=== PATIENT | male | born 1950 | race Caucasian/White ===

== ENCOUNTER → 2016-11-27 | Outpatient (CLI) | payer MEDICARE, OTHER ==
[~2016-11-27] MED LIST: IOHEXOL 350 MG/ML 100ML IJ ONE
[2016-11-27 09:10] VITALS: BP 115/73
[2016-11-27 09:40] VITALS: BP 115/74
[2016-11-27 12:11] LABS: Urine Bilirubin Negative (Negative); Urine Blood Negative /uL (Negative); Urine Color Yellow (Yellow); Urine Glucose Normal (Normal); Urine Ketone Negative (Negative); Urine Nitrite Negative (Negative); Urine Urobilinogen Normal (Negative)
[2016-11-27 12:16] LABS: Basophils # (auto) 0 uL; Basophils % (auto) 0.3 % (0.0-2.0); Eosinophils # (auto) 0.2 uL; Eosinophils % (auto) 2.5 % (0.0-7.0); Hematocrit 39.9 % (41.0-53.0); Hemoglobin 12.9 g/dL (13.5-17.5); Lymphocytes # (auto) 1.7 uL; Lymphocytes % (auto) 24.1 % (10.0-50.0); Mean Corpuscular Hemoglobin 30.7 pg (28.0-32.0); Mean Corpuscular Hgb Conc. 32.3 g/dL (32.0-36.0); Mean Corpuscular Volume 94.8 fL (80.0-100.0); Mean Platelet Volume 7.9 fL (7.4-10.4); Monocytes % (auto) 13.4 % (0.0-12.0); Neutrophils # (auto) 4.3 uL; Neutrophils % (auto) 59.7 % (37.0-80.0); Platelet Count (auto) 240 10^3/uL (140-450); Red Cell Distribution Width 14.5 % (11.6-16.0); White Blood Cell 7.2 10^3/uL (4.4-10.8)
[2016-11-27 14:30] LABS: Albumin 3.2 g/dL (3.4-5.0); BUN/Creatinine Ratio 17.8; Bilirubin, Direct 0.2 mg/dL (0-0.2); Bilirubin, Total 0.6 mg/dL (0.2-1.0); Calcium 8.3 mg/dL (8.5-10.1); Total Protein 6.8 g/dL (6.4-8.2)
== END | disposition home or self-care (01) ==
LOC: Rad HDHVI 08:47
PROVIDERS: ATTEND Internal Medicine Cardiovascular Disease
DX: I10 Essential (primary) hypertension (principal); E78.00 Pure hypercholesterolemia, unspecified; K74.1 Hepatic sclerosis; E11.9 Type 2 diabetes mellitus without complications; R97.20 Elevated prostate specific antigen [PSA]; R53.81 Other malaise; E03.9 Hypothyroidism, unspecified; D64.9 Anemia, unspecified; E55.9 Vitamin D deficiency, unspecified; N39.0 Urinary tract infection, site not specified
CPT/HCPCS: 36415; 74175; 80048; 80061; 80076; 81003; 82306; 83036; 84153; 84403; 84439; 84443; 85025; G0463

== ENCOUNTER → 2017-01-02 | Outpatient (CLI) | payer MEDICARE, OTHER ==
[~2017-01-02] VITALS: Ht 175.3 cm; Wt 106.6 kg
[~2017-01-02] MED LIST changes: +ADENOSINE 90 MG in GIVE UN-DILUTED 0 ML IV ONE; +ADENOSINE 90 MG/30 ML INJ IV ONE; -IOHEXOL 350 MG/ML 100ML IJ ONE
== END | disposition home or self-care (01) ==
LOC: Rad HDHVI 08:03
PROVIDERS: ATTEND Internal Medicine Cardiovascular Disease
DX: I10 Essential (primary) hypertension (principal); E78.00 Pure hypercholesterolemia, unspecified; F17.210 Nicotine dependence, cigarettes, uncomplicated; Z95.1 Presence of aortocoronary bypass graft
CPT/HCPCS: 78452; 93005; 96374; 96375; A9500; J0153

== ENCOUNTER → 2017-10-15 | Outpatient (CLI) | payer MEDICARE | END | disposition home or self-care (01) | LOC: Rad HDHVI 07:51 | PROVIDERS: ATTEND Internal Medicine Cardiovascular Disease | DX: I10 Essential (primary) hypertension (principal); I50.33 Acute on chronic diastolic (congestive) heart failure; Z86.73 Personal history of transient ischemic attack (TIA), and cerebral infarction without residual deficits | CPT/HCPCS: 93306; 93880 ==

== ENCOUNTER → 2017-12-29 | Outpatient (CLI) | payer MEDICARE ==
[~2017-12-29] VITALS: Ht 175.3 cm; Wt 106.6 kg
== END | disposition home or self-care (01) ==
LOC: Rad HDHVI 10:14
PROVIDERS: ATTEND Internal Medicine Cardiovascular Disease
DX: I42.0 Dilated cardiomyopathy (principal); I71.4 Abdominal aortic aneurysm, without rupture; G45.9 Transient cerebral ischemic attack, unspecified; I11.0 Hypertensive heart disease with heart failure; I50.33 Acute on chronic diastolic (congestive) heart failure; R00.2 Palpitations
CPT/HCPCS: 78452; 93005; 96374; 96375; A9500; J0153

== ENCOUNTER → 2017-12-31 | Outpatient (CLI) | payer MEDICARE ==
[~2017-12-31] MED LIST changes: -ADENOSINE 90 MG in GIVE UN-DILUTED 0 ML IV ONE; -ADENOSINE 90 MG/30 ML INJ IV ONE; +IOHEXOL 350 MG/ML 100ML IJ ONE
[2017-12-31 09:30] VITALS: BP 107/71
[2017-12-31 10:15] VITALS: BP 107/64
== END | disposition home or self-care (01) ==
LOC: Rad HDHVI 09:22
PROVIDERS: ATTEND Internal Medicine Cardiovascular Disease
DX: I42.0 Dilated cardiomyopathy (principal); I71.4 Abdominal aortic aneurysm, without rupture; G45.9 Transient cerebral ischemic attack, unspecified; R00.2 Palpitations
CPT/HCPCS: 74175; 82565; G0463; Q9967

== ENCOUNTER → 2018-10-26 | Outpatient (CLI) | payer MEDICARE ==
[2018-10-26 12:30] LABS: Albumin 3.9 g/dL (3.4-5.0); Potassium 5.3 mmol/L (3.5-5.1)
[2018-10-26 12:31] LABS: Urine Blood Negative /uL (Negative); Urine Specific Gravity 1.018 (1.001-1.035)
[2018-10-26 12:35] LABS: BUN/Creatinine Ratio 16.1; Bilirubin, Total 0.6 mg/dL (0.2-1.0); Total Protein 7.7 g/dL (6.4-8.2)
[2018-10-26 12:36] LABS: Basophils # (auto) 0 uL; Basophils % (auto) 0.5 % (0.0-2.0); Eosinophils # (auto) 0.2 uL; Eosinophils % (auto) 2.9 % (0.0-7.0); Hemoglobin 15.3 g/dL (13.5-17.5); Lymphocytes # (auto) 2.1 uL; Lymphocytes % (auto) 27.1 % (10.0-50.0); Mean Corpuscular Hgb Conc. 31.3 g/dL (32.0-36.0); Mean Corpuscular Volume 86.2 fL (80.0-100.0); Monocytes # (auto) 1.1 uL; Monocytes % (auto) 14.8 % (0.0-12.0); Neutrophils # (auto) 4.2 uL; Neutrophils % (auto) 54.7 % (37.0-80.0); Nucleated Red Blood Cells % 0.8 %; Platelet Count (auto) 282 10^3/uL (140-450); Red Blood Cells 5.68 10^6/uL (4.5-5.90); Red Cell Distribution Width 19.1 % (11.8-14.3); White Blood Cell 7.7 10^3/uL (4.4-10.8)
[2018-10-26 14:06] LABS: Free T4 (Free Thyroxine) 0.89 ng/dL (0.89-1.76)
[2018-10-26 14:08] LABS: Prostate Specific Antigen 0.39 ng/mL (0.0-4.0)
== END | disposition home or self-care (01) ==
LOC: LAB 08:17
PROVIDERS: ATTEND Internal Medicine Cardiovascular Disease
DX: E11.9 Type 2 diabetes mellitus without complications (principal); E03.9 Hypothyroidism, unspecified; E55.9 Vitamin D deficiency, unspecified; E29.1 Testicular hypofunction; D51.9 Vitamin B12 deficiency anemia, unspecified; C61 Malignant neoplasm of prostate; N39.0 Urinary tract infection, site not specified
CPT/HCPCS: 36415; 80053; 80061; 81003; 82306; 82607; 83036; 84153; 84403; 84439; 84443; 85025

== ENCOUNTER → 2018-11-20 | Outpatient (CLI) | payer MEDICARE | END | disposition home or self-care (01) | LOC: Rad HDHVI 09:48 | PROVIDERS: ATTEND Internal Medicine Cardiovascular Disease | DX: R07.89 Other chest pain (principal) | CPT/HCPCS: 93306 ==

== ENCOUNTER → 2018-12-15 | Outpatient (CLI) | payer MEDICARE ==
[~2018-12-15] VITALS: Ht 175.3 cm; Wt 113.4 kg
[~2018-12-15] MED LIST changes: +ADENOSINE 90 MG/30 ML INJ IV ONE; +ADENOSINE 95 MG in GIVE UN-DILUTED 0 ML IV ONE; -IOHEXOL 350 MG/ML 100ML IJ ONE
== END | disposition home or self-care (01) ==
LOC: Rad HDHVI 07:50
PROVIDERS: ATTEND Internal Medicine Cardiovascular Disease
DX: M19.90 Unspecified osteoarthritis, unspecified site (principal); I42.0 Dilated cardiomyopathy; G62.9 Polyneuropathy, unspecified; R06.02 Shortness of breath; I50.43 Acute on chronic combined systolic (congestive) and diastolic (congestive) heart failure
CPT/HCPCS: 78452; 93005; 96374; 96375; A9500; J0153

== ENCOUNTER → 2018-12-25 | Outpatient (CLI) | payer MEDICARE ==
[~2018-12-25] MED LIST changes: -ADENOSINE 90 MG/30 ML INJ IV ONE; -ADENOSINE 95 MG in GIVE UN-DILUTED 0 ML IV ONE; +IOHEXOL 350 MG/ML 100ML IJ ONE
[2018-12-25 09:35] VITALS: BP 119/71
--- NOTE | 2018-12-25 09:35 | NUR ---
IV insertion IV access obtained, via clean sterile technique by inserting 20 gauge catheter at LFA after 1 attempt(s). IV secured properly. No trauma to site. Patient tolerated procedure well.
--- NOTE | 2018-12-25 09:40 | NUR ---
LABS DRAWN, CREAT STAT SENT TO LAB
--- NOTE | 2018-12-25 11:10 | NUR ---
IV removal IV DC'd with sterile technique, catheter fully intact. Pressure dressing applied to site. Patient tolerated procedure well.
[2018-12-25 11:13] VITALS: BP 123/80
--- NOTE | 2018-12-25 11:13 | NUR ---
[facility] Discharge Instructions See e-MAR for any mediations given with this visit. Patient education given on disease process. Patient verbalized understanding. Previous labs reviewed. Patient discharged in stable condition with after care instructions and follow up appointment. NOTE PATIENT EDUCATED TO DRINK PLENTY OF FLUIDS OVER THE NEXT 24 HRS, PT VERBALIZED UNDERSTANDING.
== END | disposition home or self-care (01) ==
LOC: Rad HDHVI 09:21
PROVIDERS: ATTEND Internal Medicine Cardiovascular Disease
DX: I71.9 Aortic aneurysm of unspecified site, without rupture (principal); I71.00 Dissection of unspecified site of aorta; I70.0 Atherosclerosis of aorta; R94.4 Abnormal results of kidney function studies; I11.0 Hypertensive heart disease with heart failure; I50.9 Heart failure, unspecified; I42.9 Cardiomyopathy, unspecified; J43.8 Other emphysema
CPT/HCPCS: 36415; 71260; 74177; 82565; G0463; Q9967

== ENCOUNTER → 2019-09-29 | Outpatient (CLI) | payer MEDICARE | END | disposition home or self-care (01) | LOC: Rad HDHVI 07:56 | PROVIDERS: ATTEND Internal Medicine Cardiovascular Disease | DX: I34.0 Nonrheumatic mitral (valve) insufficiency (principal) | CPT/HCPCS: 93306 ==

== ENCOUNTER → 2019-10-18 | Outpatient (CLI) | payer MEDICARE ==
[~2019-10-18] VITALS: Ht 175.3 cm; Wt 108.9 kg
[~2019-10-18] MED LIST changes: +ADENOSINE 90 MG/30 ML INJ IV ONE; +ADENOSINE 91 MG in GIVE UN-DILUTED 0 ML IV ONE; -IOHEXOL 350 MG/ML 100ML IJ ONE
[2019-10-18 12:03] LABS: Basophils # (auto) 0 uL; Basophils % (auto) 0.7 % (0.0-2.0); Eosinophils # (auto) 0.2 uL; Eosinophils % (auto) 2.9 % (0.0-7.0); Hematocrit 51.6 % (41.0-53.0); Hemoglobin 16.5 g/dL (13.5-17.5); Lymphocytes # (auto) 1.5 uL; Lymphocytes % (auto) 22.1 % (10.0-50.0); Mean Corpuscular Hgb Conc. 32.1 g/dL (32.0-36.0); Mean Corpuscular Volume 87.1 fL (80.0-100.0); Monocytes # (auto) 1.2 uL; Monocytes % (auto) 17.4 % (0.0-12.0); Neutrophils # (auto) 3.9 uL; Neutrophils % (auto) 56.9 % (37.0-80.0); Nucleated Red Blood Cells % 0.1 %; Platelet Count (auto) 251 10^3/uL (140-450); Red Blood Cells 5.92 10^6/uL (4.5-5.90); Red Cell Distribution Width 17.3 % (11.8-14.3); White Blood Cell 6.8 10^3/uL (4.4-10.8)
[2019-10-18 12:08] LABS: Potassium 4.2 mmol/L (3.5-5.1)
[2019-10-18 12:11] LABS: Urine Blood Negative /uL (Negative); Urine Specific Gravity 1.009 (1.001-1.035)
[2019-10-18 12:16] LABS: Albumin 3.8 g/dL (3.4-5.0); BUN/Creatinine Ratio 12.2; Bilirubin, Total 0.6 mg/dL (0.2-1.0); Calcium 8.8 mg/dL (8.5-10.1); Total Protein 7.9 g/dL (6.4-8.2)
[2019-10-18 12:26] LABS: Free T4 (Free Thyroxine) 0.72 ng/dL (0.89-1.76)
[2019-10-18 12:27] LABS: Prostate Specific Antigen 0.38 ng/mL (0.0-4.0)
== END | disposition home or self-care (01) ==
LOC: Rad HDHVI 08:02
PROVIDERS: ATTEND Internal Medicine Cardiovascular Disease
DX: E03.9 Hypothyroidism, unspecified (principal); R07.89 Other chest pain; R06.02 Shortness of breath; K90.9 Intestinal malabsorption, unspecified; C61 Malignant neoplasm of prostate; N39.0 Urinary tract infection, site not specified; D51.9 Vitamin B12 deficiency anemia, unspecified; I10 Essential (primary) hypertension; E78.00 Pure hypercholesterolemia, unspecified; Z95.1 Presence of aortocoronary bypass graft; Z82.49 Family history of ischemic heart disease and other diseases of the circulatory system; Z79.899 Other long term (current) drug therapy; Z95.5 Presence of coronary angioplasty implant and graft
CPT/HCPCS: 36415; 78452; 80053; 80061; 81003; 82306; 82607; 83036; 84153; 84403; 84439; 84443; 85025; 93005; 96374; 96375; A9500; J0153

== ENCOUNTER → 2020-01-05 | Outpatient (CLI) | payer MEDICARE | END | disposition home or self-care (01) | LOC: LAB 10:44 | PROVIDERS: ATTEND Internal Medicine Cardiovascular Disease | DX: R94.4 Abnormal results of kidney function studies (principal) | CPT/HCPCS: 36415; 82565 ==

== ENCOUNTER → 2020-01-07 | Outpatient (CLI) | payer MEDICARE ==
[~2020-01-07] MED LIST changes: -ADENOSINE 90 MG/30 ML INJ IV ONE; -ADENOSINE 91 MG in GIVE UN-DILUTED 0 ML IV ONE; +IOHEXOL 350 MG/ML 100ML IJ ONE
[2020-01-07 08:30] VITALS: BP 117/79
[2020-01-07 09:25] VITALS: BP 115/67
== END | disposition home or self-care (01) ==
LOC: Rad HDHVI 08:23
PROVIDERS: ATTEND Internal Medicine Cardiovascular Disease
DX: I11.0 Hypertensive heart disease with heart failure (principal); I25.10 Atherosclerotic heart disease of native coronary artery without angina pectoris; I10 Essential (primary) hypertension; I71.4 Abdominal aortic aneurysm, without rupture
CPT/HCPCS: G0463; Q9967

== ENCOUNTER → 2020-09-01 | Outpatient (CLI) | payer MEDICARE ==
[2020-09-01 12:13] LABS: Basophils # (auto) 0 10 ^3/uL (0-0.2); Basophils % (auto) 0.7 % (0.0-2.0); Eosinophils # (auto) 0.2 10 ^3/uL (0-0.8); Eosinophils % (auto) 3.1 % (0.0-7.0); Hematocrit 49.7 % (41.0-53.0); Hemoglobin 16.2 g/dL (13.5-17.5); Lymphocytes # (auto) 1.9 10 ^3/uL (0.4-5.4); Lymphocytes % (auto) 25.7 % (10.0-50.0); Mean Corpuscular Hemoglobin 30.5 pg (28.0-32.0); Mean Corpuscular Hgb Conc. 32.6 g/dL (32.0-36.0); Mean Corpuscular Volume 93.7 fL (80.0-100.0); Monocytes # (auto) 1.2 10 ^3/uL (0-1.3); Monocytes % (auto) 16.6 % (0.0-12.0); Neutrophils # (auto) 3.9 10 ^3/uL (1.6-8.6); Neutrophils % (auto) 53.9 % (37.0-80.0); Nucleated Red Blood Cells % 1.7 %; Platelet Count (auto) 235 10^3/uL (140-450); Red Blood Cells 5.31 10^6/uL (4.5-5.90); Red Cell Distribution Width 15.8 % (11.8-14.3); White Blood Cell 7.3 10^3/uL (4.4-10.8)
[2020-09-01 12:31] LABS: Urine Blood Negative /uL (Negative); Urine Specific Gravity 1.007 (1.001-1.035)
[2020-09-01 12:37] LABS: Albumin 3.6 g/dL (3.4-5.0)
[2020-09-01 12:40] LABS: Total Protein 7.8 g/dL (6.4-8.2)
[2020-09-01 14:13] LABS: Potassium 3.9 mmol/L (3.5-5.1)
[2020-09-01 14:14] LABS: Bilirubin, Total 0.5 mg/dL (0.2-1.0); Calcium 8.4 mg/dL (8.5-10.1); Free T4 (Free Thyroxine) 0.76 ng/dL (0.89-1.76); Prostate Specific Antigen 0.35 ng/mL (0.0-4.0)
[2020-09-01 14:15] LABS: BUN/Creatinine Ratio 11.2
== END | disposition home or self-care (01) ==
LOC: LAB 08:44
PROVIDERS: ATTEND Internal Medicine Cardiovascular Disease
DX: C61 Malignant neoplasm of prostate (principal); D51.3 Other dietary vitamin B12 deficiency anemia; I10 Essential (primary) hypertension; E11.9 Type 2 diabetes mellitus without complications; E55.9 Vitamin D deficiency, unspecified; R00.2 Palpitations; R53.1 Weakness; R30.0 Dysuria
CPT/HCPCS: 36415; 80053; 80061; 81003; 82306; 82607; 83036; 84153; 84403; 84439; 84443; 85025

== ENCOUNTER → 2020-09-27 | Outpatient (CLI) | payer MEDICARE | END | disposition home or self-care (01) | LOC: Rad HDHVI 09:50 | PROVIDERS: ATTEND Internal Medicine Cardiovascular Disease | DX: I50.43 Acute on chronic combined systolic (congestive) and diastolic (congestive) heart failure (principal); I25.5 Ischemic cardiomyopathy | CPT/HCPCS: 93306 ==

== ENCOUNTER → 2020-10-05 | Outpatient (CLI) | payer MEDICARE ==
[~2020-10-05] VITALS: Ht 175.3 cm; Wt 117.0 kg
[~2020-10-05] MED LIST changes: +ADENOSINE 90 MG/30 ML INJ IV ONE; +ADENOSINE 98 MG in GIVE UN-DILUTED 0 ML IV ONE; -IOHEXOL 350 MG/ML 100ML IJ ONE
== END | disposition home or self-care (01) ==
LOC: Rad HDHVI 08:42
PROVIDERS: ATTEND Internal Medicine Cardiovascular Disease
DX: R06.02 Shortness of breath (principal); I10 Essential (primary) hypertension; E78.5 Hyperlipidemia, unspecified; Z95.1 Presence of aortocoronary bypass graft; Z82.49 Family history of ischemic heart disease and other diseases of the circulatory system
CPT/HCPCS: 78452; 93005; 96374; 96375; A9500; J0153

== ENCOUNTER → 2020-10-20 | Outpatient (CLI) | payer MEDICARE | END | disposition home or self-care (01) | LOC: LAB 10:33 | PROVIDERS: ATTEND Internal Medicine Cardiovascular Disease | DX: R94.4 Abnormal results of kidney function studies (principal) | CPT/HCPCS: 36415; 82565 ==

== ENCOUNTER → 2020-10-23 | Outpatient (CLI) | payer MEDICARE ==
[~2020-10-23] MED LIST changes: -ADENOSINE 90 MG/30 ML INJ IV ONE; -ADENOSINE 98 MG in GIVE UN-DILUTED 0 ML IV ONE; +IOHEXOL 350 MG/ML 100ML IJ ONE
[2020-10-23 09:39] VITALS: BP 116/73
[2020-10-23 10:17] VITALS: BP 122/78
== END | disposition home or self-care (01) ==
LOC: Rad HDHVI 09:29
PROVIDERS: ATTEND Internal Medicine Cardiovascular Disease
DX: I71.4 Abdominal aortic aneurysm, without rupture (principal); I70.0 Atherosclerosis of aorta; I70.8 Atherosclerosis of other arteries; J43.9 Emphysema, unspecified; I25.10 Atherosclerotic heart disease of native coronary artery without angina pectoris; K44.9 Diaphragmatic hernia without obstruction or gangrene; K80.20 Calculus of gallbladder without cholecystitis without obstruction; M47.819 Spondylosis without myelopathy or radiculopathy, site unspecified; Z95.1 Presence of aortocoronary bypass graft
CPT/HCPCS: 71260; 74177; G0463; Q9967

== ENCOUNTER → 2021-08-29 | Outpatient (CLI) | payer MEDICARE | END | disposition home or self-care (01) | LOC: Rad HDHVI 08:43 | PROVIDERS: ATTEND Internal Medicine Cardiovascular Disease | DX: I35.8 Other nonrheumatic aortic valve disorders (principal); R00.2 Palpitations; R06.02 Shortness of breath | CPT/HCPCS: 93306 ==

== ENCOUNTER → 2021-09-03 | Outpatient (CLI) | payer MEDICARE ==
[~2021-09-03] VITALS: Ht 175.3 cm; Wt 113.4 kg
[~2021-09-03] MED LIST changes: +ADENOSINE 90 MG/30 ML INJ IV ONE; +ADENOSINE 95 MG in GIVE UN-DILUTED 0 ML IV ONE; -IOHEXOL 350 MG/ML 100ML IJ ONE
== END | disposition home or self-care (01) ==
LOC: Rad HDHVI 12:47
PROVIDERS: ATTEND Internal Medicine Cardiovascular Disease
DX: I50.23 Acute on chronic systolic (congestive) heart failure (principal); R00.2 Palpitations; R06.02 Shortness of breath; E78.00 Pure hypercholesterolemia, unspecified
CPT/HCPCS: 78452; 93005; 96374; 96375; A9500; J0153

== ENCOUNTER → 2021-09-19 | Outpatient (CLI) | payer MEDICARE ==
[2021-09-19 10:01] LABS: Basophils # (auto) 0 10 ^3/uL (0-0.2); Eosinophils # (auto) 0.2 10 ^3/uL (0-0.8); Hemoglobin 17.3 g/dL (13.5-17.5); Mean Corpuscular Volume 90.2 fL (80.0-100.0); Nucleated Red Blood Cells % 0.1 %
[2021-09-19 10:05] LABS: Basophils % (auto) 0.6 % (0.0-2.0); Hematocrit 53.7 % (41.0-53.0); Lymphocytes # (auto) 1.9 10 ^3/uL (0.4-5.4); Lymphocytes % (auto) 30.1 % (10.0-50.0); Mean Corpuscular Hemoglobin 29.1 pg (28.0-32.0); Mean Corpuscular Hgb Conc. 32.3 g/dL (32.0-36.0); Monocytes % (auto) 15.6 % (0.0-12.0); Neutrophils # (auto) 3.1 10 ^3/uL (1.6-8.6); Neutrophils % (auto) 50.7 % (37.0-80.0); Red Blood Cells 5.95 10^6/uL (4.5-5.90); Red Cell Distribution Width 20.4 % (11.8-14.3); White Blood Cell 6.2 10^3/uL (4.4-10.8)
[2021-09-19 10:09] LABS: Albumin 3.7 g/dL (3.4-5.0); Potassium 4.3 mmol/L (3.5-5.1)
[2021-09-19 10:13] LABS: Urine Blood Negative /uL (Negative); Urine Specific Gravity 1.009 (1.001-1.035)
[2021-09-19 10:24] LABS: Free T4 (Free Thyroxine) 1.05 ng/dL (0.89-1.76); Prostate Specific Antigen 0.31 ng/mL (0.0-4.0)
[2021-09-19 10:27] LABS: Bilirubin, Total 0.8 mg/dL (0.2-1.0); Total Protein 7.8 g/dL (6.4-8.2)
== END | disposition home or self-care (01) ==
LOC: LAB 08:10
PROVIDERS: ATTEND Internal Medicine Cardiovascular Disease
DX: C61 Malignant neoplasm of prostate (principal); E11.9 Type 2 diabetes mellitus without complications; D51.3 Other dietary vitamin B12 deficiency anemia; D64.9 Anemia, unspecified; E55.9 Vitamin D deficiency, unspecified; I10 Essential (primary) hypertension; R00.2 Palpitations; R53.1 Weakness; R30.0 Dysuria
CPT/HCPCS: 36415; 80053; 80061; 81003; 82306; 82607; 83036; 84153; 84403; 84439; 84443; 85025

== ENCOUNTER → 2021-09-25 | Outpatient (CLI) | payer MEDICARE ==
[~2021-09-25] MED LIST changes: -ADENOSINE 90 MG/30 ML INJ IV ONE; -ADENOSINE 95 MG in GIVE UN-DILUTED 0 ML IV ONE; +IOHEXOL 350 MG/ML 100ML IJ ONE
[2021-09-25 09:49] VITALS: BP 121/80
[2021-09-25 10:15] VITALS: BP 118/76
== END | disposition home or self-care (01) ==
LOC: Rad HDHVI 09:40
PROVIDERS: ATTEND Internal Medicine Cardiovascular Disease
DX: K80.20 Calculus of gallbladder without cholecystitis without obstruction (principal); K44.9 Diaphragmatic hernia without obstruction or gangrene; I71.4 Abdominal aortic aneurysm, without rupture; R10.9 Unspecified abdominal pain
CPT/HCPCS: 74175; G0463; Q9967

== ENCOUNTER → 2022-07-22 | Outpatient (CLI) | payer MEDICARE ==
[2022-07-22 12:17] LABS: Basophils # (auto) 0 10 ^3/uL (0-0.2); Eosinophils # (auto) 0.2 10 ^3/uL (0-0.8); Lymphocytes # (auto) 1.8 10 ^3/uL (0.4-5.4); Neutrophils # (auto) 3.4 10 ^3/uL (1.6-8.6)
[2022-07-22 12:19] LABS: Basophils % (auto) 0.6 % (0.0-2.0); Eosinophils % (auto) 3.2 % (0.0-7.0); Hemoglobin 18.2 g/dL (13.5-17.5); Lymphocytes % (auto) 27.9 % (10.0-50.0); Mean Corpuscular Hemoglobin 29.9 pg (28.0-32.0); Mean Corpuscular Hgb Conc. 32.2 g/dL (32.0-36.0); Mean Corpuscular Volume 92.9 fL (80.0-100.0); Monocytes # (auto) 1.1 10 ^3/uL (0-1.3); Monocytes % (auto) 16.6 % (0.0-12.0); Neutrophils % (auto) 51.7 % (37.0-80.0); Nucleated Red Blood Cells % 0.2 %; Red Blood Cells 6.09 10^6/uL (4.5-5.90); White Blood Cell 6.5 10^3/uL (4.4-10.8)
[2022-07-22 12:30] LABS: Free T4 (Free Thyroxine) 1.06 ng/dL (0.89-1.76); Prostate Specific Antigen 0.47 ng/mL (0.0-4.0)
[2022-07-22 12:58] LABS: Urine Blood Negative /uL (Negative); Urine Specific Gravity 1.009 (1.001-1.035)
[2022-07-22 14:21] LABS: Hematocrit 56.6 % (41.0-53.0)
[2022-07-22 16:36] LABS: Alanine Aminotransferase 39 U/L (16-61); Albumin 3.7 g/dL (3.4-5.0); Alkaline Phosphatase 88 U/L (45-117); Anion Gap 14 (5-15); Aspartate Aminotransferase 23 U/L (15-37); BUN/Creatinine Ratio 14.2; Bilirubin, Total 0.8 mg/dL (0.2-1.0); Blood Urea Nitrogen 15 mg/dL (7-18); Calcium 8.9 mg/dL (8.5-10.1); Carbon Dioxide 22 mmol/L (21-32); Chloride 106 mmol/L (98-107); Cholesterol 149 mg/dL (< 200); GFR African American 89 mL/min; GFR Non-African American 73 mL/min; Glucose 127 mg/dL (74-106); HDL Cholesterol 35 mg/dL (40-59); LDL Cholesterol 111 mg/dL (< 100); Potassium 4.6 mmol/L (3.5-5.1); Sodium 142 mmol/L (136-145); Total Protein 7.6 g/dL (6.4-8.2); Triglycerides 177 mg/dL (< 150)
== END | disposition home or self-care (01) ==
LOC: LAB 08:03
PROVIDERS: ATTEND Internal Medicine Cardiovascular Disease
DX: I50.43 Acute on chronic combined systolic (congestive) and diastolic (congestive) heart failure (principal); E55.9 Vitamin D deficiency, unspecified
CPT/HCPCS: 36415; 80053; 80061; 81003; 82306; 82607; 83036; 84153; 84403; 84439; 84443; 85025

== ENCOUNTER → 2022-09-16 | Outpatient (CLI) | payer MEDICARE ==
[2022-09-16 16:40] LABS: Hemoglobin 18.6 g/dL (13.5-17.5); White Blood Cell 8.7 10^3/uL (4.4-10.8)
[2022-09-16 16:41] LABS: Mean Corpuscular Hemoglobin 29.8 pg (28.0-32.0); Mean Corpuscular Hgb Conc. 32.3 g/dL (32.0-36.0); Mean Corpuscular Volume 92.3 fL (80.0-100.0); Red Blood Cells 6.23 10^6/uL (4.5-5.90); Red Cell Distribution Width 17.2 % (11.8-14.3)
[2022-09-16 16:44] LABS: BUN/Creatinine Ratio 23.1; Calcium 9.1 mg/dL (8.5-10.1); Potassium 4.7 mmol/L (3.5-5.1)
[2022-09-16 16:46] LABS: Hematocrit 57.5 % (41.0-53.0)
[2022-09-16 16:47] LABS: Band Neutrophils % (manual) 0; Basophils % (manual) 0 (0.0-2.0); Blast Cells 0; Metamyelocytes % 0; Myelocytes % 0; Promyelocytes % 0; Reactive Lymphocytes 0
[2022-09-16 17:20] LABS: Eosinophils % (manual) 3 (0-7); Lymphocytes % (manual) 28 (10.0-50.0); Monocytes % (manual) 17 (0-12)
== END | disposition home or self-care (01) ==
LOC: LAB 13:06
PROVIDERS: ATTEND Internal Medicine Cardiovascular Disease
DX: I10 Essential (primary) hypertension (principal)
CPT/HCPCS: 36415; 80048; 85007; 85027

== ENCOUNTER → 2023-01-30 | Outpatient (CLI) | payer MEDICARE | END | disposition home or self-care (01) | LOC: Rad HDHVI 10:55 | PROVIDERS: ATTEND Internal Medicine Cardiovascular Disease | DX: I35.8 Other nonrheumatic aortic valve disorders (principal); R06.02 Shortness of breath; I10 Essential (primary) hypertension | CPT/HCPCS: 93306 ==

== ENCOUNTER → 2023-02-12 | Outpatient (CLI) | payer MEDICARE ==
[~2023-02-12] VITALS: Ht 175.3 cm; Wt 106.6 kg
[~2023-02-12] MED LIST changes: +ADENOSINE 90 MG in GIVE UN-DILUTED 0 ML IV ONE; +ADENOSINE 90 MG/30 ML INJ IV ONE; -IOHEXOL 350 MG/ML 100ML IJ ONE
== END | disposition home or self-care (01) ==
LOC: Rad HDHVI 14:10
PROVIDERS: ATTEND Internal Medicine Cardiovascular Disease
DX: I10 Essential (primary) hypertension (principal); I25.10 Atherosclerotic heart disease of native coronary artery without angina pectoris; R06.02 Shortness of breath; E78.00 Pure hypercholesterolemia, unspecified; E11.21 Type 2 diabetes mellitus with diabetic nephropathy; E11.40 Type 2 diabetes mellitus with diabetic neuropathy, unspecified; E11.65 Type 2 diabetes mellitus with hyperglycemia; J44.9 Chronic obstructive pulmonary disease, unspecified; Z82.49 Family history of ischemic heart disease and other diseases of the circulatory system; Z95.1 Presence of aortocoronary bypass graft
CPT/HCPCS: 78452; 93005; 96374; 96375; A9500; J0153

== ENCOUNTER → 2023-03-19 | Outpatient (CLI) | payer MEDICARE ==
[~2023-03-19] MED LIST changes: -ADENOSINE 90 MG in GIVE UN-DILUTED 0 ML IV ONE; -ADENOSINE 90 MG/30 ML INJ IV ONE; +ALBUAER3 IN; +ANGIOMAX 250 MG VIAL IV ONE; +ASPI-543 PO; +CHOL20006 PO; +CYAN1TAB11 PO; +EPIN0.1I11 IJ; +ESOM20CA PO; +FLUT100I IN; +FLUT250M2 INH; +FURO40TA4 PO; +GABA-1250 PO; +IBUP-1456 PO; +IODIXANOL 320MG/ML 100ML BTL IV ONE; +LEVO50TA7 PO; +LIDOCAINE 2%HCL (LOCAL ANESTH.) INJ 20ML MDV ONE; +METF-370 PO; +MIDAZOLAM HCL 2MG/2ML 2ml VIAL (1mg/ml) ONE; +MULTTAB99 PO; +OMEG-20 PO; +POTA-180 PO; +POTA-220 PO; +SACU1TAB7 PO; +SIMV20TA20 PO; +SODIUM CHL 0.9% 0 ML ONE; +SPIR25TA8 PO; +TEST1INJ15 IM; +TESTOSTERONE CYPIONATE 200 MG/ML 1ML VIAL IM ONE; +fentaNYL CITRATE 100 MCG/2 ML VL ONE
[2023-03-19 13:05] VITALS: BP 140/76; PULSE 67; RESP 20; O2SAT 94
[2023-03-19 13:34] VITALS: BP 132/75; PULSE 72; RESP 20; O2SAT 94
== END | disposition home or self-care (01) ==
LOC: CHF HDHVI 12:45
PROVIDERS: ATTEND Internal Medicine Cardiovascular Disease
DX: I71.40 Abdominal aortic aneurysm, without rupture, unspecified (principal); I25.5 Ischemic cardiomyopathy; E29.1 Testicular hypofunction; E11.40 Type 2 diabetes mellitus with diabetic neuropathy, unspecified; I25.10 Atherosclerotic heart disease of native coronary artery without angina pectoris; J44.9 Chronic obstructive pulmonary disease, unspecified; I10 Essential (primary) hypertension; E11.21 Type 2 diabetes mellitus with diabetic nephropathy; Z95.1 Presence of aortocoronary bypass graft; Z85.46 Personal history of malignant neoplasm of prostate
CPT/HCPCS: 93005; 96372; G0463; J1071

== ENCOUNTER 2023-03-20 06:41 | Day surgery (SDC) | payer MEDICARE ==
[2023-03-19 15:01] LABS: Basophils # (auto) 0 10 ^3/uL (0-0.2); Basophils % (auto) 0.5 % (0.0-2.0); Eosinophils # (auto) 0.2 10 ^3/uL (0-0.8); Eosinophils % (auto) 2.5 % (0.0-7.0); Hematocrit 52.5 % (41.0-53.0); Hemoglobin 17.6 g/dL (13.5-17.5); INR 1.08 (0.9-1.15); Lymphocytes # (auto) 2.2 10 ^3/uL (0.4-5.4); Lymphocytes % (auto) 26.8 % (10.0-50.0); Mean Corpuscular Hemoglobin 32.5 pg (28.0-32.0); Mean Corpuscular Hgb Conc. 33.5 g/dL (32.0-36.0); Mean Corpuscular Volume 97.1 fL (80.0-100.0); Monocytes # (auto) 1.3 10 ^3/uL (0-1.3); Monocytes % (auto) 15.6 % (0.0-12.0); Neutrophils # (auto) 4.5 10 ^3/uL (1.6-8.6); Neutrophils % (auto) 54.6 % (37.0-80.0); Nucleated Red Blood Cells % 0.1 %; Partial Thromboplastin Time 31.6 SEC (24.5-34.5); Red Blood Cells 5.41 10^6/uL (4.5-5.90); Red Cell Distribution Width 14.6 % (11.8-14.3); White Blood Cell 8.3 10^3/uL (4.4-10.8)
[2023-03-19 15:16] LABS: BUN/Creatinine Ratio 16.7 (10.0-20.0); Calcium 8.7 mg/dL (8.5-10.1)
[2023-03-20] VITALS (7 sets, daily range): BP systolic 103–146; BP diastolic 71–90; PULSE 75–82; RESP 12–16; O2SAT 90–96
[~2023-03-20] VITALS: Ht 175.3 cm; Wt 110.2 kg
[~2023-03-20 06:41] MED LIST changes: -ANGIOMAX 250 MG VIAL IV ONE; -IODIXANOL 320MG/ML 100ML BTL IV ONE; -LIDOCAINE 2%HCL (LOCAL ANESTH.) INJ 20ML MDV ONE; -MIDAZOLAM HCL 2MG/2ML 2ml VIAL (1mg/ml) ONE; -POTA-220 PO; -SODIUM CHL 0.9% 0 ML ONE; -TESTOSTERONE CYPIONATE 200 MG/ML 1ML VIAL IM ONE; -fentaNYL CITRATE 100 MCG/2 ML VL ONE
== END 2023-03-20 12:32 | disposition home or self-care (01) ==
LOC: CATH 06:41
PROVIDERS: ATTEND Internal Medicine Cardiovascular Disease
DX: I25.10 Atherosclerotic heart disease of native coronary artery without angina pectoris (principal); I51.9 Heart disease, unspecified; I71.40 Abdominal aortic aneurysm, without rupture, unspecified; I10 Essential (primary) hypertension; J45.909 Unspecified asthma, uncomplicated; Z95.1 Presence of aortocoronary bypass graft; Z79.82 Long term (current) use of aspirin; Z82.49 Family history of ischemic heart disease and other diseases of the circulatory system; Z79.1 Long term (current) use of non-steroidal anti-inflammatories (NSAID); Z79.51 Long term (current) use of inhaled steroids; Z79.84 Long term (current) use of oral hypoglycemic drugs; Z87.891 Personal history of nicotine dependence; Z79.899 Other long term (current) drug therapy
CPT/HCPCS: 36415; 80048; 85025; 85610; 85730; 93459; C1769; C1894; J0583; J1644; J2250; J3010; Q9967; 93458; 99152

== ENCOUNTER → 2023-09-25 | Outpatient (CLI) | payer MEDICARE | END | disposition home or self-care (01) | LOC: Rad HDHVI 09:05 | PROVIDERS: ATTEND Internal Medicine Cardiovascular Disease | DX: I11.9 Hypertensive heart disease without heart failure (principal); E78.5 Hyperlipidemia, unspecified | CPT/HCPCS: 93306 ==

== ENCOUNTER → 2024-11-17 | Outpatient (CLI) | payer MEDICARE ==
[~2024-11-17] MED LIST changes: +IOHEXOL 350 MG/ML 100ML IJ ONE
[2024-11-17 09:05] VITALS: BP 123/67; PULSE 70; RESP 18; O2SAT 93
[2024-11-17 09:19] VITALS: BP 129/71; PULSE 78; RESP 18; O2SAT 93
--- NOTE | 2024-11-17 10:51 | DVH ---
Procedure: CT ANGIO AORTIC ABDOMINAL HISTORY: AAA Comparison Study: 09/25/2021 Exam Date:11/17/2024 09:08 AM TECHNIQUE: CTA scanner volumetric data acquisition of abdomen and pelvis was obtained following intravenous admi nistration of intravenous contrast without any reported adverse effects. Axial images were reconstruc tina and additional sagittal and coronal images were reformatted. Arterial phase imaging were performe d. Postprocessing was also performed on a separate workstation. 3 D images were performed on a dedicated workstation and reviewed for reporting. CONTRAST: Type of contrast: Omni 350 Contrast injected: 100 ml Radiation dose : CT Dose: CTDI volume is 23.68 mGy. Dose-length product is 1217.21 mGy*cm FINDINGS: Vascular: Aortic measurements: aortic hiatus 26 mm, suprarenal abdominal aorta 25 mm and infrarenal aorta 34 m m. Infrarenal abdominal aortic aneurysm measuring up to 34 mm. Diffuse calcified atherosclerotic disease . The celiac, superior mesenteric, bilateral renal, iliac and femoral arteries are patent with out any focal stenosis or aneurysm. Lung Bases: Atelectasis and scarring in the lung bases. Liver: The liver is normal in size. No focal lesions. Normal hepatic vascular enhancement. Gallbladder and biliary Tree: Cholelithiasis noted without secondary findings of cholecystitis or alee iary obstruction. Spleen: Unremarkable Pancreas: The pancreas is normal in appearance without focal lesions or abnormal enhancement. Adrenal Glands: Unremarkable Kidneys: Kidneys demonstrate normal symmetric enhancement without focal lesions, calculi or hydroneph rosis. Bladder: Unremarkable Bowel: The stomach is grossly normal in appearance. Small bowel and colon are normal in caliber and d istribution. Normal appendix is visualized in the right lower quadrant without findings of appendici tis. Ascites: Absent Lymphadenopathy: Subcentimeter inguinal lymph nodes noted. Abdominal wall and Mesentery: Unremarkable. Pelvic Organs: Unremarkable Musculoskeletal: No aggressive focal bony lesions, acute fractures or dislocation. IMPRESSION: 1. Fusiform aneurysmal dilation of the infrarenal abdominal aorta measuring up to 34 mm, mildly enlar ged compared to prior. 2. Cholelithiasis. Subcentimeter inguinal lymph nodes. HS:Y
== END | disposition home or self-care (01) ==
LOC: Rad HDHVI 08:29
PROVIDERS: ATTEND Internal Medicine Cardiovascular Disease
DX: I71.43 Infrarenal abdominal aortic aneurysm, without rupture (principal); K80.20 Calculus of gallbladder without cholecystitis without obstruction; R59.0 Localized enlarged lymph nodes; I70.0 Atherosclerosis of aorta; J98.11 Atelectasis; J98.4 Other disorders of lung; I71.40 Abdominal aortic aneurysm, without rupture, unspecified
CPT/HCPCS: 74175; G0463; Q9967

== ENCOUNTER → 2024-11-25 | Outpatient (CLI) | payer MEDICARE ==
[~2024-11-25] MED LIST changes: -IOHEXOL 350 MG/ML 100ML IJ ONE
--- NOTE | 2024-11-26 09:07 | DVHSR ---
APPROVED REPORT EXAM: Two-dimensional and M-mode echocardiogram with Doppler and color Doppler. DIMENSIONS LVDd5.5 (3.8-5.7cm)LA (2D)3.7 (1.9-4.0cm)Aortic Root3.5 (2.0-3.7cm) LVDs3.9 (2.5-4.0cm)LA (MM) (1.9-4.0cm)Aortic Cusp Exc1.7 (1.5-2.0cm) EF (%) 55.0 (55-70%)Rt. Atrium4.2 (1.9-4.0cm)Asc. Aorta cm IVSd1.0 (0.7-1.1cm)RV (D) (1.8-2.4cm) PWd1.0 (0.7-1.1cm) Mitral Valve MitralMitral Stenosis E wave0.40m/sMV Mean GR.mmHg A wave0.70m/sMV Peak GR.mmHg E/A ratio0.62D MVAcm2 Aortic Valve Aortic ValveAortic Stenosis V10.70m/Jaron Mean GR.2mmHg V20.90m/Jaron Peak GR.3mmHg LVOT Diameter2.6 (1.8-2.4cm)Doppler AVA4.13cm2 Pulmonic Valve V20.60m/s LEFT VENTRICLE The left ventricle is normal size. The left ventricle is normal in structure and function. The Ejection Fraction is within normal limits. RIGHT VENTRICLE The right ventricle is normal size. ATRIA The left atrial size is normal. The right atrium is enlarged. The interatrial septum is intact with no evidence for an atrial septal defect. MITRAL VALVE The mitral valve is normal in structure. There is no mitral valve regurgitation noted. PULMONIC VALVE The pulmonic valve is not well visualized. TRICUSPID VALVE The tricuspid valve is grossly normal. AORTIC VALVE The aortic valve opens well. No aortic regurgitation is present. GREAT VESSELS The aortic root is normal size. PERICARDIAL EFFUSION There is no pericardial effusion. Conclusion EF 50% LVH DIASTOLIC DYSFUNCTION
== END | disposition home or self-care (01) ==
LOC: Rad HDHVI 08:32
PROVIDERS: ATTEND Internal Medicine Cardiovascular Disease
DX: I11.9 Hypertensive heart disease without heart failure (principal); E78.5 Hyperlipidemia, unspecified
CPT/HCPCS: 93306

== ENCOUNTER → 2024-12-13 | Outpatient (CLI) | payer MEDICARE ==
[~2024-12-13] VITALS: Ht 175.3 cm; Wt 113.4 kg
[~2024-12-13] MED LIST changes: +ADENOSINE 90 MG/30 ML INJ IV ONE; +ADENOSINE 95 MG in GIVE UN-DILUTED 0 ML IV ONE
== END | disposition home or self-care (01) ==
LOC: Rad HDHVI 07:54
PROVIDERS: ATTEND Internal Medicine Cardiovascular Disease
DX: I49.1 Atrial premature depolarization (principal); I49.3 Ventricular premature depolarization; I44.0 Atrioventricular block, first degree; I25.10 Atherosclerotic heart disease of native coronary artery without angina pectoris; I11.0 Hypertensive heart disease with heart failure; I50.33 Acute on chronic diastolic (congestive) heart failure; E11.9 Type 2 diabetes mellitus without complications; J84.10 Pulmonary fibrosis, unspecified; I47.10 Supraventricular tachycardia, unspecified; E78.00 Pure hypercholesterolemia, unspecified; R07.89 Other chest pain; Z95.1 Presence of aortocoronary bypass graft
CPT/HCPCS: 78452; 93017; A9500; J0153; 93005; 96374; 96375

== ENCOUNTER 2025-04-13 10:12 | Outpatient (CLI) | payer MEDICARE ==
[~2025-04-13 10:12] MED LIST changes: -ADENOSINE 90 MG/30 ML INJ IV ONE; -ADENOSINE 95 MG in GIVE UN-DILUTED 0 ML IV ONE
--- NOTE | 2025-04-13 10:45 | DVH ---
XY CHEST TWO VIEWS ROUTINE CLINICAL HISTORY: "PRE OP CARDIAC CLEARANCE" 74 years old, Male; PRE OP CARDIAC CLEARANCE.; pain COMPARISON: None TECHNIQUE: Frontal and lateral view of the chest was obtained FINDINGS: Lines and Tubes: None Lungs: No focal consolidation. Pleura: No effusion. No pneumothorax. Cardiomediastinal contours: Unremarkable Bones: Median sternotomy. IMPRESSION: No acute cardiopulmonary disease.
[2025-05-05] MEDS ORDERED: ASHW1CAP PO (15:43)
[2025-05-05] MEDS ORDERED: ATEN50TA80 PO (15:43)
[2025-05-05] MEDS ORDERED: CLOP75TA28 PO (15:43)
== END 2025-04-13 17:00 | disposition home or self-care (01) ==
LOC: Rad HDHVI 10:12
PROVIDERS: ATTEND Internal Medicine Cardiovascular Disease
DX: Z01.818 Encounter for other preprocedural examination (principal); R06.02 Shortness of breath
CPT/HCPCS: 71046

== ENCOUNTER 2025-05-09 06:08 | Inpatient (IN) | payer MEDICARE ==
[2025-05-05 10:32] LABS: Urine Protein, UAD Negative (Negative)
[2025-05-05 10:46] LABS: INR 1.03 (0.9-1.15); Partial Thromboplastin Time 29.0 SEC (24.5-34.5); Prothrombin Time 10.9 sec (9.3-11.8)
[2025-05-05 10:51] LABS: Hematocrit 50.2 % (41.0-53.0); Hemoglobin 17.0 g/dL (13.5-17.5); Mean Corpuscular Hemoglobin 33.2 pg (28.0-32.0); Mean Corpuscular Volume 97.8 fL (80.0-100.0); Nucleated Red Blood Cells % 0.2 %
[2025-05-05 10:53] LABS: Alkaline Phosphatase 82 U/L (46-116); Anion Gap 9 (5-15); BUN/Creatinine Ratio 8.7 (10.0-20.0); Blood Urea Nitrogen 9 mg/dL (9-23); Calcium 9.6 mg/dL (8.7-10.4); Carbon Dioxide 29 mmol/L (20-31); Chloride 102 mmol/L (98-107); Glucose 96 mg/dL (74-106); Potassium 3.9 mmol/L (3.5-5.1); Sodium 140 mmol/L (136-145); Total Protein 7.6 g/dL (5.7-8.2)
[2025-05-05 10:54] LABS: Alanine Aminotransferase 41 U/L (7-40); Albumin 4.6 g/dL (3.2-4.8); Bilirubin, Total 0.6 mg/dL (0.2-1.0)
[~2025-05-09] VITALS: Ht 175.3 cm; Wt 113.6 kg
[2025-05-09] VITALS (10 sets, daily range): BP systolic 112–254; BP diastolic 78–92; PULSE 66–100; RESP 16–20; TEMP 98–98.4; O2SAT 93–99
[~2025-05-09 06:08] MED LIST changes: +ASHW1CAP PO; -ASPI-543 PO; +ATEN50TA80 PO; +CLOP75TA28 PO; -FLUT250M2 INH; -TEST1INJ15 IM
[2025-05-09] MEDS ORDERED: LACTATED RINGER'S 1,000 ML IV SCH ×2 (07:30→12:15)
[2025-05-09] MEDS ORDERED: HYDROmorphone HCL 2 MG/ML VL/or syr IV PRN (07:30)
[2025-05-09] MEDS ORDERED: ONDANSETRON HCL 4 MG/2 ML VIAL IV PRN (07:30)
[2025-05-09] MEDS ORDERED: ALBUTEROL SULF HFA 90MCG INH 200DOSE IN PRN ×2 (07:30→08:15)
[2025-05-09] MEDS ORDERED: NITROGLYCERIN 0.4 MG SL TAB SL PRN (07:30)
[2025-05-09] MEDS ORDERED: MORPHINE SULFATE INJ 2 MG/ml SYRG IV PRN (07:30)
[2025-05-09] MEDS ORDERED: DEXTROSE (50%) 50ML SYRG IV PRN ×2 (07:30→12:15)
[2025-05-09] MEDS ORDERED: EPINEPHRINE 0.3 MG IM PRN (07:30)
[2025-05-09] MEDS: ACETAMINOPHEN IV 1000 MG/100ML (10MG/ML) IV ONE (08:00)
[2025-05-09] MEDS: CELECOXIB 100 MG CAP PO ONE (08:00)
[2025-05-09] MEDS: PREGABALIN CAPSULE 75 MG CAP PO ONE (08:00)
[2025-05-09] MEDS ORDERED: ALBUTEROL SULF 2.5 MG/0.5ML(0.5%) NEB SOLN NEB PRN (10:00)
[2025-05-09] MEDS: MULTIPLE VITAMIN TAB PO SCH (10:00)
[2025-05-09] MEDS ORDERED: ALBUTEROL HFA 90 MCG INHALER PO PRN (10:00)
[2025-05-09] MEDS: SPIRONOLACTONE 25 MG TAB PO SCH (10:00)
[2025-05-09] MEDS ORDERED: FUROSEMIDE 40 MG TAB PO SCH (10:00)
[2025-05-09] MEDS: DOCUSATE SOD 100 MG CAP PO SCH (10:00)
[2025-05-09] MEDS ORDERED: PATIENTS OWN MEDICATION (Sacubitril-Valsartan (Entresto 49-51 mg) 1 TAB) PO SCH (10:00)
[2025-05-09] MEDS ORDERED: POTASSIUM CHL 20 Meq TABLET PO SCH (10:00)
[2025-05-09] MEDS ORDERED: ATENOLOL 25 MG TAB PO SCH (10:00)
[2025-05-09] MEDS ORDERED: Omega-3 Fatty Acids (Fish Oil) 1,000 MG CAPSULE PO SCH (10:00)
[2025-05-09] MEDS: CYANOCOBALAMIN 500 MCG TAB PO SCH (10:00)
[2025-05-09] MEDS: CHOLECALCIFEROL (VITD3) 1,000UNIT=25mCg TAB PO SCH (10:00)
[2025-05-09] MEDS: CEFEPIME 1GM/50ML 50 ML IV SCH (11:10)
--- NOTE | 2025-05-09 11:24 | DVH ---
EXAM: XY L KNEE 3V XRAY CLINICAL INDICATION: S/P SURGERY TECHNIQUE: XY L KNEE 3V XRAY Comparison: None FINDINGS/IMPRESSION: There is no evidence of acute fracture or dislocation. Left total knee arthroplasty. Surgical raven are present.
[2025-05-09] MEDS ORDERED: ACCU-CHEK COMFORT CURVE STRIP VI SCH (11:30)
[2025-05-09] MEDS ORDERED: InsuLIN REG 1unit/0.01ml Soln (100units/ml) SC SCH ×2 (11:30→22:00)
--- NOTE | 2025-05-09 12:15 | DVHINCON2 ---
Date Seen: May 09, [address] PARKER Allergies: Coded Allergies: No Known Drug Allergy (Verified Allergy, Unknown, 03/19/23) Home Meds Reported Medications Withania Somnifera (Ashwagandha) 500 Mg Cap, 1000 MG PO DAILY, CAP 05/05/25 Atenolol (Tenormin) 50 Mg Tab, 50 MG PO DAILY, TAB 05/05/25 Clopidogrel Bisulfate (Plavix) 75 Mg Tab, 75 MG PO DAILY, TAB 05/05/25 Potassium Chloride (Potassium Chloride ER) 20 Meq Tab, 20 MEQ PO DAILY for supplement, TAB 03/19/23 Epinephrine (Anaphylaxis) (Auvi-Q) 0.1 Mg/0.1 Ml Inj, 0.3 MG IJ O PRN for anaphylaxis for 1 Day, #1 INJ 03/19/23 Metformin Hydrochloride (Metformin Hcl) 500 Mg Tab, 500 MG PO IBID for on hold/not taking for 30 Days, MG 03/19/23 Cyanocobalamin (Vitamin B12) 1,000 Mcg Tab, 1000 MCG PO DAILY for supplement, TAB 03/19/23 Cholecalciferol (Vitamin D3) 2,000 Unit Cap, 2000 UNIT PO DAILY for supplement, CAP 03/19/23 Multiple Vitamin (Mvi Tab) 1 Tab Tb, 1 TAB PO DAILY for supplement, TAB 03/19/23 [place]-3 Fatty Acids (FISH OIL) 1,000 Mg Cap, 1000 MG PO DAILY for SUPPLEMENT, CAP 03/19/23 Sacubitril-Valsartan (Entresto 49-51 mg) 1 Tab Tab, 1 TAB PO BID for HF, TAB 03/19/23 Levothyroxine Sodium (Levothyroxine Sodium) 50 Mcg Tab, 50 MCG PO QAM for low thyroid for 30 Days, MCG 03/19/23 Fluticasone Furoate-Vilanterol (BREO ELLIPTA) 1 Inh Inh, 1 INH IN DAILY, INHALER 03/19/23 Spironolactone (Spironolactone) 25 Mg Tab, 1 TAB PO DAILY for edema, #90 TAB 1 Refill 03/19/23 Furosemide (Furosemide) 40 Mg Tab, 40 MG PO DAILY for edema 03/19/23 Albuterol Sulfate (VENTOLIN MDI) 90 Mcg Ih, 108 MCG IN every 2-6 hours prn PRN for SHORTNESS OF BREATH for 30 Days, MCG 7/26/23 Simvastatin (Simvastatin) 20 Mg Tab, 20 MG PO DAILY for high chplesterol for 30 Days 03/19/23 Esomeprazole Magnesium Trihydr (Nexium) 20 Mg Cap, 1 CAP PO DAILY for GERD, #30 CAP 2 Refills 03/19/23 Ibuprofen (Ibuprofen) 800 Mg Tab, 800 MG PO BID for pain, MG 03/19/23 Gabapentin (Gabapentin) 300 Mg Cap, 300 MG PO TID for neuropathy, MG 03/19/23 Discontinued Reported Medications Aspirin (Aspir-Low) 81 Mg Tab, 81 MG PO DAILY, MG 03/19/23 Current Medications Current Medications Medications (Trade) Dose Ordered Sig/Irving Route PRN Reason Start Time Stop Time Status Last Admin Albuterol (Ventolin Hfa) 108 mcg Q4HPRN PRN IN SHORTNESS OF BREATH 05/09/25 07:30 05/09/25 08:12 DC Clopidogrel Bisulfate (Plavix) 75 mg DAILY PO 05/10/25 10:00 Furosemide (Lasix Tablet) 40 mg DAILY PO 05/09/25 10:00 Gabapentin (Neurontin Capsule) 300 mg TID PO 05/09/25 14:00 Ibuprofen (Motrin Tablet) 800 mg BID PO 05/09/25 22:00 Levothyroxine Sodium (Synthroid Tablet) 50 mcg QAM PO 05/10/25 07:00 Multivitamins (Mvi Tab) 1 tab DAILY PO 05/09/25 10:00 Spironolactone (Aldactone) 25 mg DAILY PO 05/09/25 10:00 Atenolol (Tenormin Tablet) 50 mg DAILY PO 05/09/25 10:00 Cholecalciferol (Vitamin D3 Tablet) 2,000 unit DAILY PO 05/09/25 10:00 Cyanocobalamin (Vitamin B-12) 1,000 mcg DAILY PO 05/09/25 10:00 Patient Own Medication 0.3 mg O PRN IJ anaphylaxis 05/09/25 07:30 UNV Patient Own Medication 1 inh DAILY IN 05/09/25 10:00 UNV Patient Own Medication 1,000 mg DAILY PO 05/09/25 10:00 Potassium Chloride (Klor-Con Tablet) 20 meq DAILY PO 05/09/25 10:00 Patient Own Medication 1 tab BID PO 05/09/25 10:00 UNV Atorvastatin Calcium (Lipitor) 10 mg HS PO 05/09/25 22:00 Cefepime HCl 50 ml @ 12.5 mls/hr DAILY IV 05/09/25 10:00 Lactated Ringer's 1,000 ml @ 100 mls/hr Q10H IV 05/09/25 07:30 Oxycodone/ Acetaminophen (Percocet 5/ 325MG Tablet) 1 tab Q4HP PRN PO MODERATE PAIN 05/09/25 07:30 Hydromorphone HCl (Dilaudid Injection) 1 mg Q2HP PRN IV SEVERE PAIN (7-10 PAIN SCALE) 05/09/25 07:30 Oxycodone HCl (OxyCONTIN ER Tablet) 10 mg Q12HR PO 05/09/25 10:00 Ondansetron HCl (Zofran) 4 mg Q6HP PRN IV NAUSEA / VOMITING 05/09/25 07:30 Docusate Sodium (Colace Capsule) 100 mg Q12HR PO 05/09/25 10:00 Nitroglycerin (Ntrostat Sublingual) 0.4 mg Q5MINP PRN SL FOR CHEST PAIN 05/09/25 07:30 Morphine Sulfate 2 mg Q30M PRN IV FOR CHEST PAIN 05/09/25 07:30 Diagnostic Test (Pha) (Accu-Chek Comfort Curve T) 1 strip ACHS 05/09/25 11:30 Insulin Human Regular (InsuLIN R) HS SC 05/09/25 22:00 Insulin Human Regular (InsuLIN R) AC SC 05/09/25 11:30 Dextrose 50 ml UD PRN IV Blood Sugar LESS THAN 60 05/09/25 07:30 Albuterol (Ventolin Hfa) 90 mcg Q4HPRN PRN IN SHORTNESS OF BREATH 05/09/25 08:15 05/09/25 09:45 DC Albuterol (Ventolin Medneb) 2.5 mg Q4HPRN PRN NEB SHORTNESS OF BREATH 05/09/25 10:00 05/09/25 09:53 DC Patient Own Medication 90 Q2HPRN PRN PO SHORTNESS OF BREATH 05/09/25 10:00 Albuterol (Ventolin Medneb) 2.5 mg Q4HPRN PRN NEB SHORTNESS OF BREATH 05/09/25 11:45 UNV Vital Signs Vital Signs Date Time Temp Pulse Resp B/P (MAP) Pulse Ox O2 Delivery O2 Flow Rate FiO2 05/09/25 11:28 60 15 101/65 (77) 96 05/09/25 10:28 Nasal Cannula 2.0 95 05/09/25 10:13 98.0 98.0 Labs/Diagnostic Data Labs Test 05/09/25 06:46 05/05/25 09:59 Range/Units POC Glucose 127 H 70-106 mg/dl White Blood Count 7.6 4.4-10.8 10^3/uL Red Blood Count 5.13 4.5-5.90 10^6/uL Hemoglobin 17.0 13.5-17.5 g/dL Hematocrit 50.2 41.0-53.0 % Mean Corpuscular Volume 97.8 80.0-100.0 fL Mean Corpuscular Hemoglobin 33.2 H 28.0-32.0 pg Mean Corpuscular Hemoglobin Concent 33.9 32.0-36.0 g/dL Red Cell Distribution Width 17.0 H 11.8-14.3 % Platelet Count 228 140-450 10^3/uL Mean Platelet Volume 7.9 6.9-10.8 fL Neutrophils (%) (Auto) 57.0 37.0-80.0 % Lymphocytes (%) (Auto) 24.2 10.0-50.0 % Monocytes (%) (Auto) 15.9 H 0.0-12.0 % Eosinophils (%) (Auto) 2.6 0.0-7.0 % Basophils (%) (Auto) 0.3 0.0-2.0 % Neutrophils # (Auto) 4.4 1.6-8.6 10 ^3/uL Lymphocytes # (Auto) 1.8 0.4-5.4 10 ^3/uL Monocytes # (Auto) 1.2 0-1.3 10 ^3/uL Eosinophils # (Auto) 0.2 0-0.8 10 ^3/uL Basophils # (Auto) 0 0-0.2 10 ^3/uL Nucleated Red Blood Cells 0.2 % Prothrombin Time 10.9 9.3-11.8 sec Prothrombin Time INR 1.03 0.9-1.15 Activated Partial Thromboplast Time 29.0 24.5-34.5 SEC Urine Color Colorless Yellow Urine Clarity Clear Clear Urine pH 6.5 5.0-9.0 Urine Specific [place] 1.007 1.001-1.035 Urine Protein Negative Negative Urine Ketones Negative Negative Urine Blood Negative Negative /uL Urine Nitrite Negative Negative Urine Bilirubin Negative Negative Urine Urobilinogen Normal Negative mg/dL Urine Leukocyte Esterase Negative Negative /uL Urine RBC 1 0 - 3 /hpf Urine Microscopic WBC < 1 0-3 /HPF Urine Squamous Epithelial Cells None seen <5 /hpf Urine Bacteria None seen None Seen /hpf Urine Glucose Normal Normal mg/dL Sodium Level 140 136-145 mmol/L Potassium Level 3.9 3.5-5.1 mmol/L Chloride Level 102 98-107 mmol/L Carbon Dioxide Level 29 20-31 mmol/L Anion Gap 9 5-15 Blood Urea Nitrogen 9 9-23 mg/dL Creatinine 1.04 0.700-1.30 mg/dL Glomerular Filtration Rate Calc 75 >90 mL/min BUN/Creatinine Ratio 8.7 L 10.0-20.0 Serum Glucose 96 74-106 mg/dL Calcium Level 9.6 8.7-10.4 mg/dL Total Bilirubin 0.6 0.2-1.0 mg/dL Aspartate Amino Transferase (AST) 32 13-40 U/L Alanine Aminotransferase (ALT) 41 H 7-40 U/L Alkaline Phosphatase 82 46-116 U/L Total Protein 7.6 5.7-8.2 g/dL Albumin 4.6 3.2-4.8 g/dL Assessment see dictated note Plan discussed with: Patient Date of Service: May 09, 2025 Billing Provider: ESTHELA WALTON MD Common Visit Codes: 22182-UCIW[place] INP/OBS CARE (HIGH) Secondary Visit Codes: 63178-[id number] CARE PLAN 30 MINUTES ESTHELA WALTON MD May 09, 2025 12:15
--- NOTE | 2025-05-09 12:21 | DVHOP2 ---
Operative Report - 2 Report Details Date: 05/09/25 Preop Diagnosis: End stage left knee osteoarthritis Postop Diagnosis: as above Surgeon: Redd Parker MD Clothespin Machine Operator: Dileep CRABTREE Anesthesiologist: Rasheeda LOPES Anesthesia: Regional Implant: [employer] CR Porous Femur size 6 Size 5 tibia size 9 CR poly 35 mm patella Consent: The patient was informed of the risks and benefits of the procedure. These include but are not limited to complications of anesthesia, postoperative infection, incomplete relief of symptoms, recurrence of symptoms, damage to blood vessels, nerves and tendons, deep venous thrombosis, pulmonary embolism and possible need for repeat surgery in the future. Estimated Blood Loss: 50 cc Name of Procedure Performed Left total knee arthroplasty, computer navigation Procedure Details Procedure Details: FINDINGS: Extensive degenerative disease with grade IV changes INDICATION: This patient has failed non-operative treatments for knee arthritis and is now indicated for a total knee replacement. Preoperatively in the waiting area as well as in the office, I had a long discussion with the patient regarding the plan, the expected outcome, the risks, benefits, and alternatives of surgery. The risks include, but are not limited to, infection (which may require future surgery and removal of implants) , bleeding (which may require a transfusion), damage to nerves, arteries, veins, tendons, muscles and other adjacent structures. Also discussed the possibilities of intraoperative fractures, implant loosening, heterotopic bone formation, and revision for variety of reasons, and medical complications etc. This was discussed at length and consent has been obtained. DESCRIPTION OF PROCEDURE: In the preoperative holding area, the consent was reviewed and the appropriate extremity was verified by the patient and marked with my initials. The patient was then transferred to the operating theatre. Appropriate anesthesia was induced. All bony prominences were well padded. A time out was performed verifying the side and site of surgery according to standard protocol. Preoperative antibiotics were given 10 minutes prior to tourniquet inflation. Tranexamic acid was given. A well padded thigh tourniquet was applied. The extremity was then prepped and draped in the usual sterile fashion. The extremity was exsanguinated and the tourniquet was inflated. We then made a mid-line incision, which we continued to the underlying capsular tissue. We performed a medial parapatellar arthrotomy. We periosteally exposed the proximal tibia, excised the anterior fat pad and synovium from the distal aspect of the femur. We then subluxed the patella and brought the knee up into flexion. The lateral meniscus, ACL, and PCL were released. We used the appropriate guide with attached computer navigation to secure the distal femoral cutting block to the femur with pins and completed the distal femoral cut in 0 degrees to the mechanical axis with an oscillating saw. We removed the distal femoral cutting block and turned our attention to the tibia. We used the extramedullary tibial alignment guide with computer navigation to secure the proximal tibial cutting block to the tibia with pins, setting it for a 2 mm cut from the more involved side, and completed the proximal tibial cut. We then used the spacer block and alignment alisia to check the varus-valgus angle of our cuts and the extension gap. The knee was then balanced in extension to varus/valgus stress. We marked our femoral anatomy, including Anh's line and the epicondylar axis. Using that as a rotational guide, we used the sizing guide to size our f emur properly, using a stylus to ensure there would be no notching. We then used the AP cutting guide to make our anterior and posterior cuts and chamfer cuts with an oscillating saw. We again checked the flexion and extension gaps and coronal balancing. Next, we sized our tibia and secured a baseplate with appropriate rotation with pins. We placed a trial femur in position and completed preparation of the notch with reamers and box osteotome and placed a trial notch in position. We used trials to choose our liner size and then placed the liner in place and reduced the knee. We used an oscillating saw to resurface the patella, and used a guide to choose the button size and completed patella preparation with the drill. We then placed a trial button in place. At this point, we checked our seven parameters: 1) Limb alignment 2) Extension 3) Flexion against gravity 4) Flexion stability 5) Varus-valgus balancing 6) Component rotation 7) Patella tracking We were satisfied with these and removed all trials with the exception of the baseplate. We completed preparation of the tibia with the appropriate reamer and keel impactor and then removed the baseplate. We placed a bone plug in the distal femur and then irrigated and dried all bony surfaces and injected our pain cocktail. impacted our tibial, femoral and patellar components into position. We impacted our liner and reduced the knee and held it with axial loading. We released the tourniquet and achieved hemostasis where necessary. A dilute betadine solution (17.5mL in 500mL saline) was used to wash the joint and left to sit for 3 minutes. This was then irrigated out with copious amounts of pulse lavage. We sprinkled 1g vancomycin powder below the fascia and 1g above the fascia. We copiously irrigated the knee. We re-checked our seven parameters. We closed our capsular incision with a PDS style suture. We irrigated further. We closed the subcutaneous tissue with Vicryl suture and re-approximated the skin with raven. We verified all lower extremity compartments were soft and compressible and that we had intact distal pulses. We wrapped the extremity in sterile Webril and norma bandage. The patient was transferred to the recovery room in stable condition. Condition Good Disposition Still a Patient REDD PARKER MD May 09, 2025 12:21
[2025-05-09] MEDS: GABAPENTIN 300 MG CAP PO SCH (14:00)
[2025-05-09] MEDS: OXYCODONE W/ ACETAMINOPHEN 5/325MG TABLET PO PRN (15:11)
--- NOTE | 2025-05-09 15:18 | DVHINCON2 ---
DATE OF CONSULTATION: 05/09/2025 INTERNAL MEDICINE CONSULT HISTORY OF PRESENT ILLNESS: The patient is a 74-year-old gentleman who was admitted after he underwent surgery on the left knee for DJD of the knee. The patient at this time denies any significant pain. No chest pain. No shortness of breath. No nausea or vomiting. REVIEW OF SYSTEMS: Review of rest of the systems is otherwise currently negative. PAST MEDICAL HISTORY: Significant for diabetes mellitus, congestive heart failure, hypothyroidism, hypertension, COPD, abdominal aortic aneurysm. MEDICATIONS: Include atenolol, Plavix, Breo Ellipta, Lasix, gabapentin, levothyroxine, metformin, potassium, Aldactone, Entresto, simvastatin. ALLERGIES: No known drug allergies. SOCIAL HISTORY: He denies smoking or alcohol. Lives at home with his . The patient quit smoking. FAMILY HISTORY: Negative. PHYSICAL EXAMINATION: GENERAL: The patient is awake, alert. VITAL SIGNS: Temperature of 98, pulse of 63 per minute, blood pressure 101/65. SHEENT: Unremarkable. NECK: There is no JVD. No pedal edema. LUNGS: Equal bilaterally. No added sounds. CARDIOVASCULAR SYSTEM: S1 and S2. Regular rate and rhythm. No murmurs. ABDOMEN: Soft. There is no organomegaly. NEUROLOGIC: Nonfocal. MUSCULOSKELETAL: There is dressing at the site of the left knee surgery. ASSESSMENT AND PLAN: * Diabetes mellitus, for which he is placed on sliding scale insulin. * Hypertension. * Chronic diastolic heart failure. * Obesity. * COPD. * Hypothyroidism. * History of abdominal aortic aneurysm. * Hyperlipidemia. 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 ADVANCED CARE PLANNING: The patient is a full code -Time spent was 18 minutes. MD MICHAEL Chatman/GENEVIEVE TID: [id number] RECEIPT: [id number] [facility]
[2025-05-09] MEDS: InsuLIN REG 1unit/0.01ml Soln (100units/ml) SC SCH (17:00)
[2025-05-09] MEDS: ACCU-CHEK COMFORT CURVE STRIP VI SCH (17:23)
[2025-05-09] MEDS ORDERED: ALBUTEROL MEDNEB 2.5 mg/3ml NEB NEB SCH (18:00)
[2025-05-09] MEDS: ALBUTEROL SULF 2.5 MG/0.5ML(0.5%) NEB SOLN NEB PRN (18:49)
[2025-05-09] MEDS ORDERED: BUDESONIDE (INHALATION) 0.5 MG/2 ML NEB NEB SCH (22:00)
[2025-05-09] MEDS: IBUPROFEN 800 MG TAB PO SCH (22:11)
[2025-05-09] MEDS: ATORVASTATIN 20 MG TAB PO SCH (22:12)
[2025-05-10] VITALS (12 sets, daily range): BP systolic 107–135; BP diastolic 72–82; PULSE 78–98; RESP 16–20; TEMP 97.5–98.2; O2SAT 88–99
[2025-05-10] MEDS: LEVOTHYROXINE SODIUM 50 MCG TAB PO SCH (05:46)
--- NOTE | 2025-05-10 05:50 | DVH ---
CHEST RADIOGRAPH Indication: chf Technique: Single frontal view of the chest was obtained COMPARISON: XY CHEST TWO VIEWS ROUTINE on DOS: 04/13/25, XY CHEST TWO VIEWS ROUTINE on DOS: 03/19/23, C HEST TWO VIEWS ROUTINE on DOS: 04/08/22 FINDINGS: Lines and Tubes: None Lungs: Diminished lung volumes with concomitant crowding of the pulmonary vasculature. No evidence o f focal consolidation. Pleura: No effusion. No pneumothorax. Cardiomediastinal contours: Unremarkable status post median sternotomy. Bones: Unremarkable IMPRESSION: 1. Diminished lung volumes with concomitant crowding of the pulmonary vasculature. 2. No evidence of focal consolidation.
[2025-05-10 06:37] LABS: Hematocrit 46.1 % (41.0-53.0); Hemoglobin 15.3 g/dL (13.5-17.5); Mean Corpuscular Hemoglobin 33.0 pg (28.0-32.0); Mean Corpuscular Volume 99.5 fL (80.0-100.0); Nucleated Red Blood Cells % 0.1 %
[2025-05-10 06:57] LABS: Alanine Aminotransferase 25 U/L (7-40); Albumin 4.0 g/dL (3.2-4.8); Alkaline Phosphatase 67 U/L (46-116); Anion Gap 12 (5-15); BUN/Creatinine Ratio 16.1 (10.0-20.0); Bilirubin, Total 1.1 mg/dL (0.2-1.0); Blood Urea Nitrogen 15 mg/dL (9-23); Carbon Dioxide 27 mmol/L (20-31); Chloride 103 mmol/L (98-107); Potassium 3.8 mmol/L (3.5-5.1); Sodium 142 mmol/L (136-145); Total Protein 6.6 g/dL (5.7-8.2)
[2025-05-10 07:02] LABS: Calcium 8.6 mg/dL (8.7-10.4); Glucose 121 mg/dL (74-106)
--- NOTE | 2025-05-10 08:14 | DVHPN2 ---
Progress Note Date Seen: May 10, 2025 Medical Necessity Reason Pt with a Central, PICC or Fol: No Subjective Patient reports: No new complaints Objective vital signs Vital Sign Date Time Temp Pulse Resp B/P (MAP) Pulse Ox O2 Delivery O2 Flow Rate FiO2 05/10/25 05:00 98.0 78 20 117/72 (87) 95 98.0 05/09/25 20:00 Room Air* 0 N/A Nasal Cannula* Total Intake and Output 05/09/25 05/09/25 05/10/25 14:59 22:59 06:59 Intake Total 700 ml 400 ml Output Total 0 ml Balance 700 ml 400 ml medications Current Medications Medications Dose Ordered Sig/Irving Route Start Time Stop Time Status Last Admin Dose Admin Clopidogrel Bisulfate 75 mg DAILY PO 05/10/25 10:00 Gabapentin 300 mg TID PO 05/09/25 14:00 05/10/25 05:46 300 MG Ibuprofen 800 mg BID PO 05/09/25 22:00 05/09/25 22:11 800 MG Levothyroxine Sodium 50 mcg QAM PO 05/10/25 07:00 05/10/25 05:46 50 MCG Multivitamins 1 tab DAILY PO 05/09/25 10:00 Spironolactone 25 mg DAILY PO 05/09/25 10:00 Cholecalciferol 2,000 unit DAILY PO 05/09/25 10:00 Cyanocobalamin 1,000 mcg DAILY PO 05/09/25 10:00 Patient Own Medication 0.3 mg O PRN IM 05/09/25 07:30 Hold Atorvastatin Calcium 10 mg HS PO 05/09/25 22:00 05/09/25 22:12 10 MG Cefepime HCl 50 ml @ 12.5 mls/hr DAILY IV 05/09/25 10:00 Oxycodone/ Acetaminophen 1 tab Q4HP PRN PO 05/09/25 07:30 05/09/25 15:11 1 TAB Oxycodone HCl 10 mg Q12HR PO 05/09/25 10:00 05/09/25 22:12 10 MG Ondansetron HCl 4 mg Q6HP PRN IV 05/09/25 07:30 Docusate Sodium 100 mg Q12HR PO 05/09/25 10:00 05/09/25 22:12 100 MG Nitroglycerin 0.4 mg Q5MINP PRN SL 05/09/25 07:30 Morphine Sulfate 2 mg Q30M PRN IV 05/09/25 07:30 Albuterol 2.5 mg Q4HPRN PRN NEB 05/09/25 11:45 05/09/25 18:49 2.5 MG Hydromorphone HCl 1 mg Q3HP PRN IV 05/09/25 12:15 Diagnostic Test (Pha) 1 strip ACHS 05/09/25 17:00 05/10/25 05:44 1 STRIP Insulin Human Regular ACHS SC 05/09/25 17:00 Dextrose 50 ml UD PRN IV 05/09/25 12:15 Examination: GENERAL:Normal, MSK:Abnormal laboratory and microbiology Laboratory Tests 05/10/25 05:44 Test 05/10/25 05:44 Range/Units Serum Glucose 121 H 74-106 mg/dL Problem List/Assessment/Plan Problem List/Assessment/Plan 74 year old male who is s/p Left TKA POD 1 1. pain control 2. DVT ppx 3. WBAT LLE with use of walker 4. Physical therapy 5. CPM as ordered 6.Prescriptions sent for percocet, colace and keflex to medicine [facility] in [place] 7. dressing to remain in place for 2 weeks, has follow up scheduled on 05/24/2025 at 10:45 8. clear for discharge from orthopedic standpoint with the following discharge recommendations: Total Knee Arthroplasty Discharge Instructions Wound Care 1. You will likely have a gel-type dressing over your wound, you may keep this on for 7-14 days after leaving the hospital until your first post-op visit, unless it becomes soiled or your skin becomes irritated. If a wound vac dressing is placed on your knee this is to be left in place for one week and will be changed as needed. After your remove the dressing or wound vac, the home health nurse may place clean dry dressing over your wound. Keep wound covered, clean and dry for two weeks. 2. [place] will be removed during your initial post-op visit. If you have concerns about our wound, please call the office immediately. If nervous about staple removal can take pain pill one hour prior to appointment. 3. If there is drainage from your wound, change the dressing daily until it stops. If drainage lasts more than 10 days, call our office. 4. Low grade (up to 100 degrees) fever is common for the first week after surgery. You should take your temperature daily. If you have fevers of 101 or more, please call the office. Medication Management 1. You will be discharged with pain medication, a blood thinner (unless you were previously on a blood thinner prior to surgery) and stool softener. Please follow the instructions regarding these medications as provided by your nurse at the hospital upon discharge. 2. Blood clots in the leg are a known complication of surgery. It is very important that you take the medication to protect against clots. Depending on what you are discharged on typically it is Lovenox 40mg daily for 2 weeks or Aspirin 81mg twice daily for 4 weeks. After you finish this, you should then take baby Aspirin (81mg) once daily for 2 weeks. 3. You should restart all of your prescription medications once discharged from the hospital/surgery center unless specifically instructed otherwise. 4. Herbal supplements may be restarted 2 weeks after surgery. 5. If you have been given Coumadin as a blood thinner, please follow up with your admitted attorneys during the first two weeks after surgery to review medications and overall medical well-being. 6. Please note that narcotic pain medication may cause constipation. Please remember to take stool softeners (Colace) when using narcotics to help reduce the change of constipation. You should not use alcohol together with narcotic medication. Activity 1. CPM as ordered, goal is for 6 hours every day for the first 21 days of your recovery. Can break it up in to increments of 2-3 hours at a time. Most hospitals will start at 45 degrees of flexion, and increase by 5 degrees daily until the machine has been maxed out. The goal is to be at 90 degrees by first postop visit in 2 weeks. 2. No pool, jacuzzi, beach, roberts or bath for 6 weeks. Once all scabbing has fallen off patient can begin soaking and submerging knee under water for 15- minute periods at a time. 3. Physical therapy is critical in the first 2 weeks. If having issues with scheduling please inform office. 4. No running or jumping for 6 weeks. 5. Can walk and bear as much weight on the surgical leg as tolerated. No restrictions in regards to walking or standing. [facility] [place] 1. Driving is not permitted within the first 2 weeks. 2. Your first postoperative visit will take place 2 weeks after discharge. Please call the office once you are home from the hospital to arrange this appointment. 3. Antibiotic preventative treatment is required before dental or other invasive procedures. Please ask your surgeon about this at your first postoperative visit. If you experience chest pain, shortness of breath or severe painful calf swelling, go to the nearest emergency room to be evaluated. Please call our office once your situation is stabilized. Plan discussed with: Patient Date of Service: May 10, 2025 Billing Provider: JAVI PARKER MD Common Visit Codes: NOT BILLABLE IQRA RINCON NP May 10, 2025 08:14
[2025-05-10] MEDS: CLOPIDOGREL BISULFATE 75 MG TAB PO SCH (09:14)
--- NOTE | 2025-05-10 12:17 | DVHPN2 ---
Progress Note Date Seen: May 10, 2025 Medical Necessity Reason Pt with a Central, PICC or Fol: No Subjective Patient reports: No new complaints Review of Systems: HEENT:Normal, CVS:Normal, RESPIRATORY:Normal, GI:Normal, :Normal, MSK:Normal, NEURO:Normal Objective vital signs Vital Sign Date Time Temp Pulse Resp B/P (MAP) Pulse Ox O2 Delivery O2 Flow Rate FiO2 05/10/25 08:46 90 Room Air 0.0 05/10/25 08:46 21 05/10/25 08:46 93 16 05/10/25 08:30 97.5 135/82 (99) 97.5 Total Intake and Output 05/09/25 05/09/25 05/10/25 15:00 23:00 07:00 Intake Total 700 ml 400 ml Output Total 0 ml Balance 700 ml 400 ml medications Current Medications Medications Dose Ordered Sig/Irving Route Start Time Stop Time Status Last Admin Dose Admin Clopidogrel Bisulfate 75 mg DAILY PO 05/10/25 10:00 05/10/25 09:14 75 MG Gabapentin 300 mg TID PO 05/09/25 14:00 05/10/25 05:46 300 MG Ibuprofen 800 mg BID PO 05/09/25 22:00 05/10/25 09:12 800 MG Levothyroxine Sodium 50 mcg QAM PO 05/10/25 07:00 05/10/25 05:46 50 MCG Multivitamins 1 tab DAILY PO 05/09/25 10:00 05/10/25 09:11 1 TAB Spironolactone 25 mg DAILY PO 05/09/25 10:00 05/10/25 09:13 25 MG Cholecalciferol 2,000 unit DAILY PO 05/09/25 10:00 05/10/25 09:44 2,000 UNIT Cyanocobalamin 1,000 mcg DAILY PO 05/09/25 10:00 05/10/25 09:14 1,000 MCG Patient Own Medication 0.3 mg O PRN IM 05/09/25 07:30 Hold Atorvastatin Calcium 10 mg HS PO 05/09/25 22:00 05/09/25 22:12 10 MG Cefepime HCl 50 ml @ 12.5 mls/hr DAILY IV 05/09/25 10:00 05/10/25 09:45 12.5 MLS/HR Oxycodone/ Acetaminophen 1 tab Q4HP PRN PO 05/09/25 07:30 05/09/25 15:11 1 TAB Oxycodone HCl 10 mg Q12HR PO 05/09/25 10:00 05/10/25 09:13 10 MG Ondansetron HCl 4 mg Q6HP PRN IV 05/09/25 07:30 Docusate Sodium 100 mg Q12HR PO 05/09/25 10:00 05/10/25 09:13 100 MG Nitroglycerin 0.4 mg Q5MINP PRN SL 05/09/25 07:30 Morphine Sulfate 2 mg Q30M PRN IV 05/09/25 07:30 Albuterol 2.5 mg Q4HPRN PRN NEB 05/09/25 11:45 05/10/25 08:46 2.5 MG Hydromorphone HCl 1 mg Q3HP PRN IV 05/09/25 12:15 Diagnostic Test (Pha) 1 strip ACHS 05/09/25 17:00 05/10/25 05:44 1 STRIP Insulin Human Regular ACHS SC 05/09/25 17:00 Dextrose 50 ml UD PRN IV 05/09/25 12:15 Examination: GENERAL:Normal, HEENT:Normal, NECK:Normal, LUNGS:Normal, CVS:Normal, ABDOMEN:Normal, MSK:Normal, MSK:Abnormal (left knee dressing), SKIN:Normal, NEURO:Normal, :Normal laboratory and microbiology Laboratory Tests 05/10/25 05:44 Test 05/10/25 05:44 Range/Units Serum Glucose 121 H 74-106 mg/dL Problem List/Assessment/Plan Problem List/Assessment/Plan * Diabetes mellitus, for which he is placed on sliding scale insulin. * Hypertension: adjust meds * acute on Chronic diastolic heart failure: lasix iv * Obesity. * COPD. * Hypothyroidism. * History of abdominal aortic aneurysm. * Hyperlipidemia. 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 ADVANCED CARE PLANNING: The patient is a full code-Time spent was 18 minutes. Plan discussed with: Patient My Orders My Orders Orders - ESTHELA WALTON MD Procedure Category Date Status Time Glucose Blood PHA 05/09/25 In Process (Accu-Chek Comfort 17:00 Dextrose 50% Syringe PHA 05/09/25 In Process 12:15 Insulin R (Human) PHA 05/09/25 In Process (Insulin R) 17:00 Date of Service: May 10, 2025 Billing Provider: ESTHELA WALTON MD Common Visit Codes: [id number] INP/OBS CARE(HIGH) Secondary Visit Codes: [id number] CARE PLAN 30 MINUTES ESTHELA WALTON MD May 10, 2025 12:17
[2025-05-10] MEDS: FUROSEMIDE 20 MG/2 ML VIAL IV ONE (13:15)
--- NOTE | 2025-05-10 14:27 | DVHPN2 ---
Progress Note - Dictate Date Seen: May 09, 2025 Medical Necessity Reason Pt with a Central, PICC or Fol: No Subjective PT S/P LEFT KNEE ARTHROPLASTY PMH A. Coronary artery disease. B. History of coronary artery bypass grafting with GARRETT to the LAD, saphenous vein graft sequence to OM1 and OM2 and saphenous vein graft to the PDA. The patient also had angioplasty some 10 years ago as well. PERTINENT MEDICAL HISTORY: Significant for father and mother both with coronary artery disease. The patient with history of asthma. CABG x 4, 12 years ago. He discontinued smoking some 30 years ago. Denies any syncopal episode. No melena, hematochezia. No bleeding diathesis. SURGICAL HISTORY: Significant for rotator cuff surgery in 2022. CURRENT MEDICATIONS: Include simvastatin, Entresto, aspirin, and spironolactone. The patient with ejection fraction slightly diminished between 35% and 40% at this time. REVIEW OF SYSTEMS: Denies any syncopal episode. No melena or hematochezia. No fever, no diarrhea, no abdominal discomfort. No history of diverticulitis. No history of inflammatory bowel disease. No history of irritable bowel syndrome. Positive for benign prostatic hypertrophy. He has got aortic aneurysm abdominal that requires yearly surveillance as well. Denies any CVA. Denies any syncopal episode. No neurological disorders such as seizures or movement disorder or narcolepsy. LABORATORY DATA: Shows a hemoglobin of 17.6, hematocrit 52.5. BUN of 16, creatinine is 0.96. Chest x-ray does not show any acute changes. EKG, no acute changes noted. vital signs Vital Sign Date Time Temp Pulse Resp B/P (MAP) Pulse Ox O2 Delivery O2 Flow Rate FiO2 05/10/25 13:15 135/81 05/10/25 08:46 90 Room Air 0.0 05/10/25 08:46 21 05/10/25 08:46 93 16 05/10/25 08:30 97.5 97.5 Total Intake and Output 05/09/25 05/09/25 05/10/25 15:00 23:00 07:00 Intake Total 700 ml 400 ml Output Total 0 ml Balance 700 ml 400 ml medications Current Medications Medications Dose Ordered Sig/Irving Route Start Time Stop Time Status Last Admin Dose Admin Clopidogrel Bisulfate 75 mg DAILY PO 05/10/25 10:00 05/10/25 09:14 75 MG Gabapentin 300 mg TID PO 05/09/25 14:00 05/10/25 13:15 300 MG Levothyroxine Sodium 50 mcg QAM PO 05/10/25 07:00 05/10/25 05:46 50 MCG Multivitamins 1 tab DAILY PO 05/09/25 10:00 05/10/25 09:11 1 TAB Spironolactone 25 mg DAILY PO 05/09/25 10:00 05/10/25 09:13 25 MG Cholecalciferol 2,000 unit DAILY PO 05/09/25 10:00 05/10/25 09:44 2,000 UNIT Cyanocobalamin 1,000 mcg DAILY PO 05/09/25 10:00 05/10/25 09:14 1,000 MCG Patient Own Medication 0.3 mg O PRN IM 05/09/25 07:30 Hold Atorvastatin Calcium 10 mg HS PO 05/09/25 22:00 05/09/25 22:12 10 MG Cefepime HCl 50 ml @ 12.5 mls/hr DAILY IV 05/09/25 10:00 05/10/25 09:45 12.5 MLS/HR Oxycodone/ Acetaminophen 1 tab Q4HP PRN PO 05/09/25 07:30 05/09/25 15:11 1 TAB Oxycodone HCl 10 mg Q12HR PO 05/09/25 10:00 05/10/25 09:13 10 MG Ondansetron HCl 4 mg Q6HP PRN IV 05/09/25 07:30 Docusate Sodium 100 mg Q12HR PO 05/09/25 10:00 05/10/25 09:13 100 MG Nitroglycerin 0.4 mg Q5MINP PRN SL 05/09/25 07:30 Morphine Sulfate 2 mg Q30M PRN IV 05/09/25 07:30 Albuterol 2.5 mg Q4HPRN PRN NEB 05/09/25 11:45 05/10/25 08:46 2.5 MG Hydromorphone HCl 1 mg Q3HP PRN IV 05/09/25 12:15 Diagnostic Test (Pha) 1 strip ACHS 05/09/25 17:00 05/10/25 11:30 1 STRIP Insulin Human Regular ACHS SC 05/09/25 17:00 05/10/25 12:22 2 UNITS Dextrose 50 ml UD PRN IV 05/09/25 12:15 Furosemide 20 mg DAILY IV 05/11/25 10:00 objective PHYSICAL EXAMINATION: VITAL SIGNS: Blood pressure is 122/80, pulse of 80, O2 saturation 98% on room air. HEENT: Pupils are reactive. Funduscopic exam shows no AV nicking, no exudates, no papilledema. Sclerae are anicteric. Extraocular muscles are intact. Tympanic membranes are negative. Oral mucosa moist. Posterior pharynx without any exudate. No sinus tenderness. NECK: No cervical adenopathy, no supraclavicular adenopathy. Carotid pulses are 2+, symmetrical. No JVD appreciated. PULMONARY: Clear to auscultation. CARDIOVASCULAR: Regular rate. PMI is not displaced. ABDOMEN: Soft, nontender, normal bowel sounds. Obese. Distal pulses are 1+ and symmetrical. NEUROLOGIC: The patient is intact. SKIN: Unremarkable. EXTREMITIES: 1+ edema. laboratory and microbiology Laboratory Tests 05/10/25 05:44 Test 05/10/25 05:44 Range/Units Serum Glucose 121 H 74-106 mg/dL Problem List S/PLEFT KNEE ARTHROPLASTY ORG HD CAD S/P CABG AAA HTN DIABETES VASCULOPATHY NEUROPATHY COPD METABOLIC SYNDROME HYPOTHYROIDISM Assessment/Plan PT SERIAL LABS CONT HOME MEDS DVT PROPHYLAXIS Plan discussed with: Patient ARIK PETERSEN MD May 10, 2025 14:27
[2025-05-10] MEDS ORDERED: FENTANYL 100mcg/2mL SYRINGE IV ONE (15:54)
[2025-05-10] MEDS ORDERED: D5W IV ONE (15:55)
[2025-05-10] MEDS ORDERED: CEFAZOLIN IV ONE (15:55)
[2025-05-10] MEDS: HYDROmorphone HCL 2 MG/ML VL/or syr IV PRN (16:37)
[2025-05-11] VITALS (10 sets, daily range): BP systolic 123–137; BP diastolic 75–88; PULSE 93–100; RESP 16–22; TEMP 97.9–98.3; O2SAT 91–98
[2025-05-11 07:50] LABS: Anion Gap 10 (5-15); Calcium 8.8 mg/dL (8.7-10.4); Carbon Dioxide 24 mmol/L (20-31); Chloride 103 mmol/L (98-107); Potassium 4.3 mmol/L (3.5-5.1); Sodium 137 mmol/L (136-145)
[2025-05-11 07:56] LABS: BUN/Creatinine Ratio 11.7 (10.0-20.0); Blood Urea Nitrogen 11 mg/dL (9-23)
[2025-05-11 07:58] LABS: Glucose 125 mg/dL (74-106)
[2025-05-11 08:00] LABS: Hematocrit 42.1 % (41.0-53.0); Hemoglobin 14.3 g/dL (13.5-17.5); Mean Corpuscular Hemoglobin 33.6 pg (28.0-32.0); Mean Corpuscular Volume 98.7 fL (80.0-100.0); Nucleated Red Blood Cells % 0.1 %
[2025-05-11] MEDS: FUROSEMIDE 20 MG/2 ML VIAL IV SCH (09:11)
--- NOTE | 2025-05-11 11:11 | DVHDS2 ---
Discharge Summary Date of Admission May 09, 2025 at 07:17 Date of Discharge: May 11, 2025 Labs/Diagnostic Data: Laboratory Results Test 05/11/25 06:53 05/11/25 05:58 05/10/25 05:44 05/05/25 09:59 White Blood Count 10.4 10^3/uL (4.4-10.8) Red Blood Count 4.27 10^6/uL (4.5-5.90) Hemoglobin 14.3 g/dL (13.5-17.5) Hematocrit 42.1 % (41.0-53.0) Mean Corpuscular Volume 98.7 fL (80.0-100.0) Mean Corpuscular Hemoglobin 33.6 pg (28.0-32.0) Mean Corpuscular Hemoglobin Concent 34.0 g/dL (32.0-36.0) Red Cell Distribution Width 17.4 % (11.8-14.3) Platelet Count 183 10^3/uL (140-450) Mean Platelet Volume 7.9 fL (6.9-10.8) Neutrophils (%) (Auto) 70.8 % (37.0-80.0) Lymphocytes (%) (Auto) 10.0 % (10.0-50.0) Monocytes (%) (Auto) 17.8 % (0.0-12.0) Eosinophils (%) (Auto) 1.2 % (0.0-7.0) Basophils (%) (Auto) 0.2 % (0.0-2.0) Neutrophils # (Auto) 7.3 10 ^3/uL (1.6-8.6) Lymphocytes # (Auto) 1.0 10 ^3/uL (0.4-5.4) Monocytes # (Auto) 1.8 10 ^3/uL (0-1.3) Eosinophils # (Auto) 0.1 10 ^3/uL (0-0.8) Basophils # (Auto) 0 10 ^3/uL (0-0.2) Nucleated Red Blood Cells 0.1 % Sodium Level 137 mmol/L (136-145) Potassium Level 4.3 mmol/L (3.5-5.1) Chloride Level 103 mmol/L (98-107) Carbon Dioxide Level 24 mmol/L (20-31) Anion Gap 10 (5-15) Blood Urea Nitrogen 11 mg/dL (9-23) Creatinine 0.94 mg/dL (0.700-1.30) Glomerular Filtration Rate Calc 85 mL/min (>90) BUN/Creatinine Ratio 11.7 (10.0-20.0) Serum Glucose 125 mg/dL (74-106) Calcium Level 8.8 mg/dL (8.7-10.4) POC Glucose 115 mg/dl (70-106) Total Bilirubin 1.1 mg/dL (0.2-1.0) Aspartate Amino Transferase (AST) 23 U/L (13-40) Alanine Aminotransferase (ALT) 25 U/L (7-40) Alkaline Phosphatase 67 U/L (46-116) Total Protein 6.6 g/dL (5.7-8.2) Albumin 4.0 g/dL (3.2-4.8) Prothrombin Time 10.9 sec (9.3-11.8) Prothrombin Time INR 1.03 (0.9-1.15) Activated Partial Thromboplast Time 29.0 SEC (24.5-34.5) Urine Color Colorless (Yellow) Urine Clarity Clear (Clear) Urine pH 6.5 (5.0-9.0) Urine Specific [place] 1.007 (1.001-1.035) Urine Protein Negative (Negative) Urine Ketones Negative (Negative) Urine Blood Negative /uL (Negative) Urine Nitrite Negative (Negative) Urine Bilirubin Negative (Negative) Urine Urobilinogen Normal mg/dL (Negative) Urine Leukocyte Esterase Negative /uL (Negative) Urine RBC 1 /hpf (0 - 3) Urine Microscopic WBC < 1 /HPF (0-3) Urine Squamous Epithelial Cells None seen /hpf (<5) Urine Bacteria None seen /hpf (None Seen) Urine Glucose Normal mg/dL (Normal) Other Laboratory Tests 05/11/25 06:53 Brief Hx & Hospital Course: SEE DICTATED NOTE Condition at Discharge: Good Final Diagnosis/Problems List LEFT KNEE SURGERY Discharge Disposition: Home Discharge Instruct/Medications Diet: Cardiac 2g Na,low cholest Activity: No Restrictions, As Tolerated Follow Up/Referral: FU WIHT PCP/ORTHO Medications: RESUME HOME MEDS Scheduled Atenolol (Tenormin), 50 MG PO DAILY, (Reported) Cholecalciferol (Vitamin D3), 2,000 UNIT PO DAILY, (Reported) Clopidogrel Bisulfate (Plavix), 75 MG PO DAILY, (Reported) Cyanocobalamin (Vitamin B12), 1,000 MCG PO DAILY, (Reported) Esomeprazole Magnesium Trihydr (Nexium), 1 CAP PO DAILY, (Reported) Fluticasone Furoate-Vilanterol (Breo Ellipta), 1 INH IN DAILY, (Reported) Furosemide (Furosemide), 40 MG PO DAILY, (Reported) Gabapentin (Gabapentin), 300 MG PO TID, (Reported) Ibuprofen (Ibuprofen), 800 MG PO BID, (Reported) Levothyroxine Sodium (Levothyroxine Sodium), 50 MCG PO QAM, (Reported) Metformin Hydrochloride (Metformin Hcl), 500 MG PO IBID, (Reported) Multiple Vitamin (Mvi Tab), 1 TAB PO DAILY, (Reported) [place]-3 Fatty Acids (Fish Oil), 1,000 MG PO DAILY, (Reported) Potassium Chloride (Potassium Chloride ER), 20 MEQ PO DAILY, (Reported) Sacubitril-Valsartan (Entresto 49-51 mg), 1 TAB PO BID, (Reported) Simvastatin (Simvastatin), 20 MG PO DAILY, (Reported) Spironolactone (Spironolactone), 1 TAB PO DAILY, (Reported) Withania Somnifera (Ashwagandha), 1,000 MG PO DAILY, (Reported) Scheduled PRN Albuterol Sulfate (Ventolin Mdi), 108 MCG IN every 2-6 hours prn PRN for SHORTNESS OF BREATH, (Reported) Epinephrine (Anaphylaxis) (Auvi-Q), 0.3 MG IJ O PRN for anaphylaxis, (Reported) Discontinued Medications Aspirin (Aspir-Low), 81 MG PO DAILY, (Reported) Discontinued Reason: Prescription changed Discharge Statement: "Patient was advised to return to the ER or call 911 if any headaches, dizziness, shortness of breath, chest pain, abdominal pain, bleeding, fevers, or worsening of medical condition. Patient was counseled about treatment plan, medications, possible side effects, patientverbalized understanding. All questions were answered to the best of my ability. This discharge took greater then 30 minutes in planning, reviewing documentation, counseling the patient, and discussing with other team members." DME: Diagnosis: postop ASSESSMENT ASSESSMENT Assessment LEFT KNEE SURGERY Date of Service: May 11, 2025 Billing Provider: ESTHELA WALTON MD Common Visit Codes: [id number] DISCH DAY >30min ESTHELA WALTON MD May 11, 2025 11:11
--- NOTE | 2025-05-11 11:29 | DVHDS ---
HISTORY OF PRESENT ILLNESS: The patient is a 74-year-old gentleman who was admitted after he underwent surgery on the left knee for DJD of the knee. The patient has a history of COPD, hypertension, congestive heart failure, diabetes, hypothyroidism, and abdominal aortic aneurysm. HOSPITAL COURSE: The patient was seen in Cardiology consult by Dr. Olguin. The patient received physical therapy and did well. He will now be discharged home to resume his home medications and will be on the rest of medications as per Dr. Olguin. The patient was diuresed while in the hospital. He will follow up with Dr. Olguin and Orthopedics. He has also had home health arranged. FINAL DIAGNOSES: * Diabetes mellitus. * Hypertension. * Acute and chronic diastolic heart failure. * Obesity. * COPD. * Hypothyroidism. * History of abdominal aortic aneurysm. * Hyperlipidemia. 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 Time spent in discharge planning and review of plan with the patient and nursing was 38 minutes. MD MICHAEL Chatman/EMERY TID: [id number] RECEIPT: [id number]
--- NOTE | 2025-05-11 14:14 | DVHPN2 ---
Progress Note - Dictate Date Seen: May 11, 2025 Medical Necessity Reason Pt with a Central, PICC or Fol: No Subjective PT S/P LEFT KNEE ARTHROPLASTY PMH A. Coronary artery disease. B. History of coronary artery bypass grafting with GARRETT to the LAD, saphenous vein graft sequence to OM1 and OM2 and saphenous vein graft to the PDA. The patient also had angioplasty some 10 years ago as well. PERTINENT MEDICAL HISTORY: Significant for father and mother both with coronary artery disease. The patient with history of asthma. CABG x 4, 12 years ago. He discontinued smoking some 30 years ago. Denies any syncopal episode. No melena, hematochezia. No bleeding diathesis. SURGICAL HISTORY: Significant for rotator cuff surgery in 2022. CURRENT MEDICATIONS: Include simvastatin, Entresto, aspirin, and spironolactone. The patient with ejection fraction slightly diminished between 35% and 40% at this time. REVIEW OF SYSTEMS: Denies any syncopal episode. No melena or hematochezia. No fever, no diarrhea, no abdominal discomfort. No history of diverticulitis. No history of inflammatory bowel disease. No history of irritable bowel syndrome. Positive for benign prostatic hypertrophy. He has got aortic aneurysm abdominal that requires yearly surveillance as well. Denies any CVA. Denies any syncopal episode. No neurological disorders such as seizures or movement disorder or narcolepsy. LABORATORY DATA: Shows a hemoglobin of 17.6, hematocrit 52.5. BUN of 16, creatinine is 0.96. Chest x-ray does not show any acute changes. EKG, no acute changes noted. vital signs Vital Sign Date Time Temp Pulse Resp B/P (MAP) Pulse Ox O2 Delivery O2 Flow Rate FiO2 05/11/25 13:21 98.0 100 20 91 05/11/25 13:00 128/79 (95) 05/11/25 10:03 Room Air* 0 21 Total Intake and Output 05/10/25 05/10/25 05/11/25 14:59 22:59 06:59 Intake Total 50 ml 500 ml 300 ml Balance 50 ml 500 ml 300 ml medications Current Medications Medications Dose Ordered Sig/Irving Route Start Time Stop Time Status Last Admin Dose Admin Clopidogrel Bisulfate 75 mg DAILY PO 05/10/25 10:00 05/11/25 09:10 75 MG Gabapentin 300 mg TID PO 05/09/25 14:00 05/11/25 05:55 300 MG Levothyroxine Sodium 50 mcg QAM PO 05/10/25 07:00 05/11/25 05:56 50 MCG Multivitamins 1 tab DAILY PO 05/09/25 10:00 05/11/25 09:10 1 TAB Spironolactone 25 mg DAILY PO 05/09/25 10:00 05/11/25 09:09 25 MG Cholecalciferol 2,000 unit DAILY PO 05/09/25 10:00 05/11/25 09:09 2,000 UNIT Cyanocobalamin 1,000 mcg DAILY PO 05/09/25 10:00 05/11/25 09:09 1,000 MCG Patient Own Medication 0.3 mg O PRN IM 05/09/25 07:30 Hold Atorvastatin Calcium 10 mg HS PO 05/09/25 22:00 05/10/25 21:10 10 MG Cefepime HCl 50 ml @ 12.5 mls/hr DAILY IV 05/09/25 10:00 05/11/25 09:09 12.5 MLS/HR Oxycodone/ Acetaminophen 1 tab Q4HP PRN PO 05/09/25 07:30 05/11/25 06:08 1 TAB Oxycodone HCl 10 mg Q12HR PO 05/09/25 10:00 05/11/25 09:10 10 MG Ondansetron HCl 4 mg Q6HP PRN IV 05/09/25 07:30 Docusate Sodium 100 mg Q12HR PO 05/09/25 10:00 05/11/25 09:11 100 MG Nitroglycerin 0.4 mg Q5MINP PRN SL 05/09/25 07:30 Morphine Sulfate 2 mg Q30M PRN IV 05/09/25 07:30 Albuterol 2.5 mg Q4HPRN PRN NEB 05/09/25 11:45 05/11/25 10:03 2.5 MG Hydromorphone HCl 1 mg Q3HP PRN IV 05/09/25 12:15 05/10/25 22:48 1 MG Diagnostic Test (Pha) 1 strip ACHS 05/09/25 17:00 05/11/25 11:30 1 STRIP Insulin Human Regular ACHS SC 05/09/25 17:00 05/10/25 21:53 2 UNITS Dextrose 50 ml UD PRN IV 05/09/25 12:15 Furosemide 20 mg DAILY IV 05/11/25 10:00 05/11/25 09:11 20 MG objective PHYSICAL EXAMINATION: VITAL SIGNS: Blood pressure is 122/80, pulse of 80, O2 saturation 98% on room air. HEENT: Pupils are reactive. Funduscopic exam shows no AV nicking, no exudates, no papilledema. Sclerae are anicteric. Extraocular muscles are intact. Tympanic membranes are negative. Oral mucosa moist. Posterior pharynx without any exudate. No sinus tenderness. NECK: No cervical adenopathy, no supraclavicular adenopathy. Carotid pulses are 2+, symmetrical. No JVD appreciated. PULMONARY: Clear to auscultation. CARDIOVASCULAR: Regular rate. PMI is not displaced. ABDOMEN: Soft, nontender, normal bowel sounds. Obese. Distal pulses are 1+ and symmetrical. NEUROLOGIC: The patient is intact. SKIN: Unremarkable. EXTREMITIES: 1+ edema. laboratory and microbiology Laboratory Tests 05/11/25 06:53 Test 05/11/25 06:53 Range/Units Serum Glucose 125 H 74-106 mg/dL Problem List S/PLEFT KNEE ARTHROPLASTY ORG HD CAD S/P CABG AAA HTN DIABETES VASCULOPATHY NEUROPATHY COPD METABOLIC SYNDROME HYPOTHYROIDISM Assessment/Plan PT SERIAL LABS CONT HOME MEDS DVT PROPHYLAXIS DC HOME WITH PT Plan discussed with: Patient ARIK PETERSEN MD May 11, 2025 14:14
== END 2025-05-11 16:10 | disposition home health service (06) | DRG 469 ==
LOC: SUR 06:08 → OVERFLOW 07:17 → WEST WING 14:25
PROVIDERS: ADMIT Internal Medicine; ATTEND Internal Medicine
PROC: 8E0YXBZ Computer Assisted Procedure of Lower Extremity (ICD-10-PCS; 2025-05-09)
PROC: 0SRD0JZ Replacement of Left Knee Joint with Synthetic Substitute, Open Approach (ICD-10-PCS; principal; 2025-05-09 08:21)
DX: M17.12 Unilateral primary osteoarthritis, left knee (principal); I50.33 Acute on chronic diastolic (congestive) heart failure; E78.5 Hyperlipidemia, unspecified; I11.0 Hypertensive heart disease with heart failure; E66.9 Obesity, unspecified; E03.9 Hypothyroidism, unspecified; I25.10 Atherosclerotic heart disease of native coronary artery without angina pectoris; J44.89 Other specified chronic obstructive pulmonary disease; E11.9 Type 2 diabetes mellitus without complications; Z79.4 Long term (current) use of insulin; Z79.82 Long term (current) use of aspirin; Z82.49 Family history of ischemic heart disease and other diseases of the circulatory system; Z87.891 Personal history of nicotine dependence; Z95.1 Presence of aortocoronary bypass graft; Z79.899 Other long term (current) drug therapy; Z68.36 Body mass index [BMI] 36.0-36.9, adult; Z79.84 Long term (current) use of oral hypoglycemic drugs
CPT/HCPCS: 36415; 71045; 73562; 80048; 80053; 81001; 82962; 85025; 85610; 85730; 86850; 86900; 86901; 94640; 97110; 97116; 97163; G0378; J1815